=== PATIENT | male | born 1955 | race Caucasian/White ===

== ENCOUNTER 2016-12-15 10:02 | Outpatient (CLI) | payer OTHER ==
--- NOTE | 2016-12-15 12:32 | MRI Report ---
EXAM: MRI LUMBAR SPINE WITHOUT CONTRAST EXAM DATE: 12/15/2016 10:53 AM. CLINICAL HISTORY: 61-year-old with low back pain COMPARISON: Lumbar radiograph 02/26/2007. TECHNIQUE: Multiplanar, multisequence T1-weighted and fluid-sensitive sequences of the lumbar spine f rom T12 to S1 without contrast. Other: None. FINDINGS: Spinal Cord: The conus terminates at mid-L1. No signal abnormality in the visualized spinal cord. Alignment: Senior Data Integration Developer sequence suggest 24 degrees of levoconvex scoliotic curvature. No definite spondylol isthesis. Bone Marrow: Five vtw-itk-bokudaf lumbar vertebral bodies are assumed. There is moderate endplate deg enerative changes, Schmorl's node formation, mild to moderate loss of disk height, disk desiccation s een throughout the lumbar spine. No definite acute fracture. No marrow replacing lesion. No definite abnormal marrow edema Disk Levels/Facets: T12-L1: Unremarkable. L1-L2: Small posterior disk bulge as well as ligamentous thickening, arthritic facet disease, and pro minent dorsal epidural fat producing minimal thecal sac narrowing. There is no significant neural for delia narrowing. L2-L3: Small posterior disk bulge with central disk protrusion as well as ligamentum flavum thickenin g, arthritic facet disease, and prominent dorsal fat producing mild to moderate spinal canal stenosis . There is moderate right and mild left neural foraminal narrowing. L3-L4: Small posterior disk bulge as well as ligamentum flavum thickening, arthritic facet disease, a nd prominent dorsal epidural fat producing minimal thecal sac narrowing. There is mild right and mild -to-moderate left neuroforaminal narrowing. L4-L5: Small posterior disk bulge with slight effacement of the ventral thecal sac. Bilateral facet d isease. Mild right and dywh-nb-peewuoyu left neural foraminal narrowing. L5-S1: Small left paracentral disk protrusion with effacement of the lateral recess and potential mas s effect on traversing left S1 nerve root. Bilateral arthritic facet disease. Mild right and moderate -to-severe left neural foraminal narrowing. Musculature: Normal. No edema or fatty atrophy. Other: The visualized pelvic cavity is unremarkable. IMPRESSION: 1. Senior Data Integration Developer sequence suggest 24 degrees of levoconvex scoliotic curvature. No definite spondylolisthesis . 2. Moderate multilevel degenerative changes. L2-L3: Mild to moderate spinal canal stenosis. Moderate right and mild left neural foraminal narrowin g. L3-L4: No significant spinal canal stenosis. Mild right and xvff-it-wcftqcix left neuroforaminal narr owing. L4-L5: No significant spinal canal stenosis. Mild right and cblz-ya-dqtorttb left neural foraminal na rrowing. L5-S1: Mild to moderate effacement of the lateral recess and potential mass effect on traversing left S1 nerve root. Mild right and axvnmoym-cg-brxhky left neural foraminal narrowing. Comment: The following findings are so common in adults without low back pain that while we report th eir presence, they must be interpreted with caution and in the context of the clinical situation. (Re sherrie Leong et al, Spine 2001) Prevalence of findings in patients without low back pain: Disk degeneration (any evidence): 92% Disk desiccation/T2 signal loss: 83% Disk height loss: 56% Disk bulge: 64% Disk protrusion: 32% Annular tear/high intensity zone: 38% [facility] Referring Provider Line: [phone] SITE ID: [id number]
== END 2016-12-15 10:03 | disposition home or self-care (01) ==
LOC: DI 10:02
PROVIDERS: ATTEND Family Medicine
DX: M51.36 Other intervertebral disc degeneration, lumbar region (principal); M47.896 Other spondylosis, lumbar region; M51.26 Other intervertebral disc displacement, lumbar region; M51.27 Other intervertebral disc displacement, lumbosacral region; M47.897 Other spondylosis, lumbosacral region
CPT/HCPCS: 72148

== ENCOUNTER 2017-03-02 14:43 | Outpatient (CLI) | payer OTHER ==
[2017-03-02 12:52] LABS: BASOPHILS # (AUTO) 0.1 10^3/uL (0.0-0.1); BASOPHILS % (AUTO) 0.7 %; EOSINOPHILS # (AUTO) 0.1 10^3/uL (0.0-0.7); EOSINOPHILS % (AUTO) 1.8 %; HCT - HEMATOCRIT 45.2 % (42.0-52.0); HGB - HEMOGLOBIN 15.4 g/dL (14.0-18.0); LYMPHOCYTES # (AUTO) 1.7 10^3/uL (1.5-3.5); LYMPHOCYTES % (AUTO) 24.5 %; MEAN CORPUSCULAR HEMOGLOBIN 30.3 pg (27.0-31.0); MEAN CORPUSCULAR HGB CONC 34.1 g/dL (32.0-36.0); MEAN CORPUSCULAR VOLUME 88.8 fL (80.0-94.0); MEAN PLATELET VOLUME 9.7 fL (7.4-11.4); MONOCYTES # (AUTO) 0.6 10^3/uL (0.0-1.0); MONOCYTES % (AUTO) 8.5 %; NEUTROPHILS # (AUTO) 4.6 10^3/uL (1.5-6.6); NEUTROPHILS % (AUTO) 64.5 %; NUCLEATED RED BLOOD CELLS AUTO 0.1 /100WBC; RED BLOOD COUNT 5.09 10^6/uL (4.70-6.10); RED CELL DISTRIBUTION WIDTH 13.4 % (12.0-15.0); UNCORRECTED WHITE BLOOD COUNT 7.1 x10^3/uL; WHITE BLOOD COUNT 7.1 x10^3/uL (4.8-10.8)
[2017-03-02 13:31] LABS: ALBUMIN/GLOBULIN RATIO 1.5 (1.0-2.2); BILIRUBIN,TOTAL 1.9 mg/dL (0.2-1.0); BUN - BLOOD UREA NITROGEN 18 mg/dL (6-20); CALCIUM 9.5 mg/dL (8.5-10.3); CARBON DIOXIDE - CO2 26 mmol/L (21-32); CHLORIDE 104 mmol/L (101-111); CHOL/HDL RATIO 5.6 (<5.0); CHOLESTEROL 185 mg/dL; CREATININE 0.8 mg/dL (0.6-1.2); GFR - MDRD 98 (>89); GLUCOSE 90 mg/dL (70-100); HDL CHOLESTEROL 33 mg/dL; LDL/HDL RATIO 3.6 (<3.6); POTASSIUM 3.8 mmol/L (3.5-5.0); SODIUM 138 mmol/L (135-145); TOTAL PROTEIN 7.2 g/dL (6.7-8.2); TRIGLYCERIDES 166 mg/dL; VLDL CHOLESTEROL 33 mg/dL
== END 2017-03-02 14:44 | disposition home or self-care (01) ==
LOC: LAB.WCP 14:43
PROVIDERS: ATTEND Family Medicine
DX: G47.33 Obstructive sleep apnea (adult) (pediatric) (principal); D12.6 Benign neoplasm of colon, unspecified; E78.5 Hyperlipidemia, unspecified; I10 Essential (primary) hypertension; N52.9 Male erectile dysfunction, unspecified; Z12.5 Encounter for screening for malignant neoplasm of prostate
CPT/HCPCS: 36415; 80053; 80061; 84153; 85025

== ENCOUNTER → 2018-02-08 | Outpatient (CLI) | payer OTHER ==
[2018-02-08 15:00] LABS: ALBUMIN 4.2 g/dL (3.2-5.5); ALBUMIN/GLOBULIN RATIO 1.4 (1.0-2.2); ALKALINE PHOSPHATASE 68 IU/L (42-121); ALT ALANINE AMINOTRANSFERASE 33 IU/L (10-60); AST ASPARTATE AMINOTRANSFERASE 26 IU/L (10-42); BILIRUBIN,TOTAL 1.4 mg/dL (0.2-1.0); BUN - BLOOD UREA NITROGEN 19 mg/dL (6-20); CALCIUM 9.6 mg/dL (8.5-10.3); CARBON DIOXIDE - CO2 31 mmol/L (21-32); CHLORIDE 104 mmol/L (101-111); CHOL/HDL RATIO 4.6 (<5.0); CHOLESTEROL 174 mg/dL; CREATININE 0.9 mg/dL (0.6-1.2); GFR - MDRD 86 (>89); GLUCOSE 98 mg/dL (70-100); HDL CHOLESTEROL 38 mg/dL; LDL CHOLESTEROL,CALCULATED 117 mg/dL; LDL/HDL RATIO 3.1 (<3.6); SODIUM 144 mmol/L (135-145); TOTAL PROTEIN 7.2 g/dL (6.7-8.2); VLDL CHOLESTEROL 19 mg/dL
== END ==
LOC: LAB.WCP 08:03
PROVIDERS: ATTEND Family Medicine
DX: I10 Essential (primary) hypertension (principal); E78.5 Hyperlipidemia, unspecified; Z12.5 Encounter for screening for malignant neoplasm of prostate
CPT/HCPCS: 36415; 80053; 80061; 83721; 84153

== ENCOUNTER 2018-09-25 21:07 | Emergency (ER) | payer OTHER ==
[2018-09-25] MEDS ORDERED: HYDROcod/ACETAM 5/325 MG TABLET PO STA (22:32)
--- NOTE | 2018-09-25 22:35 | ED Physician Documentation ---
History of Present Illness - Stated complaint Stated Complaint: LT SIDE RIB PX - Chief complaint Chief Complaint: Back Pain - History obtained from History obtained from: Patient, Family - History of Present Illness Timing: How many weeks ago (3) Pain level max: 8 Pain level now: 5 - Additonal information Additional information: 62-year-old male fell down the stairs in his home 3 weeks ago. Tonight he sneezed and had an increased pain in the posterior left ribs. Better with rest, worse with movement and palpation. No difficulty breathing. Review of Systems Constitutional: denies: Fever, Chills Nose: denies: Rhinorrhea / runny nose, Congestion Respiratory: denies: Cough GI: denies: Nausea, Vomiting, Diarrhea Skin: denies: Rash Musculoskeletal: denies: Neck pain, Back pain Neurologic: denies: Focal weakness, Numbness, Head injury, LOC PD PAST MEDICAL HISTORY - Past Medical History Past Medical History: No - Past Surgical History Past Surgical History: No - Present Medications Home Medications: Ambulatory Orders Medication Instructions Recorded Confirmed Hydrocodone/Acetaminophen 1 - 2 each PO Q6H PRN #14 tablet 09/25/18 [Hydrocodon-Acetaminophen 5-325] - Allergies Allergies/Adverse Reactions: Allergies Allergy/AdvReac Type Severity Reaction Status Date / Time amoxicillin Allergy Hives Verified 09/25/18 21:16 - Living Situation Living Situation: reports: With family Living Arrangement: reports: At home - Social History Does the pt smoke?: No Does the pt have substance abuse?: No PD ED PE NORMAL - Vitals Vital signs reviewed: Yes - General General: Alert and oriented X 3, No acute distress - HEENT HEENT: Moist mucous membranes - Cardiac Cardiac: RRR - Respiratory Respiratory: No respiratory distress, Clear bilaterally - Abdomen Abdomen: Soft, Non tender, Non distended - Back Back: No spinal TTP (No midline tenderness to palpation) - Derm Derm: Warm and dry - Neuro Neuro: Alert and oriented X 3 - Psych Psych: Normal mood, Normal affect - Free text exam Free text exam: Tender to palpation on the left posterior ribs, approximately 7 through 9. No crepitus. No ecchymosis. Results - Vitals Vitals: Vital Signs - 24 hr 09/25/18 09/25/18 21:14 22:52 Temperature 36.8 C 36.5 C Heart Rate 70 65 Respiratory 20 16 Rate Blood Pressure 178/96 H 146/89 H O2 Saturation 96 95 Oxygen O2 Source Room air PD MEDICAL DECISION MAKING - ED course Complexity details: considered differential, d/w patient, d/w family ED course: 62-year-old male presents to the emergency department with left posterior rib injury 3 weeks ago, likely small fractures. No evidence of pneumothorax or pleural effusion. We will continue supportive care and follow-up with his doctor. Will hold x-rays at this time. Patient and comfortable with this plan. Patient counseled regarding signs and symptoms for which I believe and urgent re-evaluation would be necessary. Patient with good understanding of and agreement to plan and is comfortable going home at this time This document was made in part using voice recognition software. While efforts are made to proofread this document, sound alike and grammatical errors may occur. Departure - Departure Disposition: 01 Home, Self Care Clinical Impression: Contusion of rib on left side Qualifiers: Encounter type: initial encounter Qualified Code(s): S20.212A - Contusion of left front wall of thorax, initial encounter Condition: Good Instructions: ED Contusion Vs Minor Fx Rib Follow-Up: Skinny Oglesby MD [Primary Care Provider] - Within 1 week Prescriptions: Hydrocodone/Acetaminophen [Hydrocodon-Acetaminophen 5-325] 1 - 2 each PO Q6H PRN #14 tablet PRN Reason: pain Comments: Return if you worsen. Follow-up with your doctor for further care. You likely have a small rib fractures that will take approximately 6 weeks to heal. Do not drink alcohol or drive while on narcotic pain medicine. Note that many narcotic pain relievers also contain tylenol/acetaminophen. Please ensure that your total dose of acetaminophen from all sources does not exceed 3 grams (3000mg) per day. You may constipated on this medication, take a stool softener such as "Colace" twice a day while you are on it. Also recommend a iydf-lxs-ktgejey laxative such as senna or MiraLAX any day that you do not have a bowel movement. If you received narcotic pain medication in the emergency department, do not drive or operate machinery for the next 24 hours. Discharge Date/Time: 09/25/18 22:55
[2018-09-25 22:55] VITALS: BP 146/89
== END 2018-09-25 22:55 | disposition home or self-care (01) ==
LOC: ED 21:07
DX: S20.212A Contusion of left front wall of thorax, initial encounter (principal); W10.9XXA Fall (on) (from) unspecified stairs and steps, initial encounter; Y92.009 Unspecified place in unspecified non-institutional (private) residence as the place of occurrence of the external cause
CPT/HCPCS: 99283; A9270

== ENCOUNTER 2019-01-02 02:38 | Emergency (ER) | payer OTHER ==
[2019-01-02] MEDS ORDERED: HYDROmorphone 1 MG/ML CARPUJECT IVP STA (02:56)
[2019-01-02 03:21] LABS: BASOPHILS % (AUTO) 0.5 %; EOSINOPHILS # (AUTO) 0.2 10^3/uL (0.0-0.7); HGB - HEMOGLOBIN 15.2 g/dL (14.0-18.0); LYMPHOCYTES # (AUTO) 1.4 10^3/uL (1.5-3.5); LYMPHOCYTES % (AUTO) 18.9 %; MEAN CORPUSCULAR HEMOGLOBIN 30.6 pg (27.0-31.0); MEAN CORPUSCULAR VOLUME 89.9 fL (80.0-94.0); MEAN PLATELET VOLUME 10.9 fL (7.4-11.4); MONOCYTES # (AUTO) 0.8 10^3/uL (0.0-1.0); MONOCYTES % (AUTO) 10.5 %; NEUTROPHILS % (AUTO) 67.7 %; PLT - PLATELET COUNT 144 10^3/uL (130-450); RED BLOOD COUNT 4.97 10^6/uL (4.70-6.10); RED CELL DISTRIBUTION WIDTH 13.2 % (12.0-15.0); WHITE BLOOD COUNT 7.4 x10^3/uL (4.8-10.8)
[2019-01-02 03:26] LABS: CALCIUM 9.7 mg/dL (8.5-10.3); CREATININE 1.2 mg/dL (0.6-1.2)
--- NOTE | 2019-01-02 03:34 | CT Report ---
Reason: right flank pain, vomiting, possible kidney stone Procedure Date: 01/02/2019 Accession Number: [id number] / [id number] Procedure: CT - Abdomen/Pelvis WO CPT Code: FULL RESULT: EXAM: CT ABDOMEN AND PELVIS (CT KUB) EXAM DATE: 01/02/2019 03:15 AM. CLINICAL HISTORY: Right flank pain, vomiting, possible kidney stone. COMPARISONS: None. TECHNIQUE: Routine axial helical CT imaging was performed through the abdomen and pelvis without IV contrast. Reconstructions: Coronal and sagittal. In accordance with CT protocol optimization, one or more of the following dose reduction techniques were utilized for this exam: automated exposure control, adjustment of mA and/or KV based on patient size, or use of iterative reconstructive technique. FINDINGS: Lung Bases: Unremarkable. Right Kidney/Ureter: Mild right hydronephrosis secondary to right proximal ureteral 5 x 6 x 7 mm calculus additional small nonobstructive right renal calculi. Mild right perinephric stranding. Left Kidney/Ureter: Nonobstructive left renal calculus measuring 5 mm. Few hypodense left renal lesions measuring up to 3.6 cm, likely cysts. Mild left perinephric stranding. Other Solid Organs: Noncontrast images of the solid organs are grossly unremarkable. Gallbladder/Bile Ducts: Cholecystectomy. No significant biliary dilation. Peritoneal Cavity: No free fluid, free air or kuldip adenopathy. Bowel is grossly unremarkable. Appendix is normal. Pelvic Organs: Bladder is underdistended. No bladder stones or significant wall thickening. Noncontrast images of the visualized pelvic organs are unremarkable. Vasculature: Atherosclerotic vascular disease. No abdominal aortic aneurysm. Other: Osseous degenerative changes. Small fat-containing inguinal hernias. IMPRESSION: 1. Mild right hydronephrosis secondary to right proximal ureteral 5 x 6 x 7 mm calculus. Mild nonspecific perinephric stranding is present which is slightly greater on the right than left and may be reactive to obstructive uropathy. However, recommend clinical correlation and correlation with urinalysis to exclude superimposed infection. 2. Additional nonobstructive bilateral renal calculi and incidental hypodense left renal lesions which likely represent cysts. 3. Cholecystectomy. [facility]
[2019-01-02 04:05] LABS: BILIRUBIN,URINE NEGATIVE (NEGATIVE); GLUCOSE, URINE (UA) NEGATIVE (NEGATIVE); KETONES,URINE (UA) NEGATIVE (NEGATIVE); LEUKOCYTE ESTERASE, URINE NEGATIVE (NEGATIVE); NITRITE,URINE NEGATIVE (NEGATIVE); OCCULT BLOOD,URINE LARGE (NEGATIVE); PROTEIN,URINE TRACE mg/dL (NEGATIVE); UROBILINOGEN,URINE 0.2 (NORMAL) E.U./dL (NORMAL)
[2019-01-02 04:06] LABS: CLARITY,URINE CLEAR (CLEAR)
[2019-01-02 04:16] LABS: BACTERIA,URINE Rare /HPF (None Seen); RBC,URINE TNTC /HPF (0-5); SQUAMOUS EPITHELIAL CELL,UR RARE Squamous (<= Few)
--- NOTE | 2019-01-02 04:28 | ED Physician Documentation ---
PD HPI BACK PAIN - Stated complaint Stated Complaint: BK PX - Chief complaint Chief Complaint: Back Pain - History obtained from History obtained from: Patient, Family - History of Present Illness Timing - onset: How many days ago (2) Timing - duration: Days (2) Timing - details: Abrupt onset, Waxing and waning (right lower and right mid back pain) Pain level max: 9 Pain level now: 7 Severity Comments: moderate to severe, sharp and sudden Location: Mid, Lower, Right Quality: Sharp Associated symptoms: No: Fever, Weakness, Numbness, Incontinent of urine, Unable to urinate, Hematuria, Incontinent of stool Improves with: Nothing Worsened by: Other (nothing) Contributing factors: Other (none) Similar symptoms before: Has not had sx before Recently seen: Not recently seen - Treatment prior to arrival Treatment prior to arrival: ibuprofen at 1am Review of Systems Ten Systems: 10 systems reviewed and negative Constitutional: denies: Fever, Chills Cardiac: reports: Reviewed and negative Respiratory: reports: Reviewed and negative GI: reports: Nausea. denies: Abdominal Pain, Vomiting, Diarrhea : denies: Dysuria, Frequency, Hesitancy, Incontinent, Hematuria Musculoskeletal: reports: Back pain Neurologic: reports: Reviewed and negative Immunocompromised: reports: Reviewed and negative PD PAST MEDICAL HISTORY - Past Medical History Past Medical History: Yes Cardiovascular: Hypertension Respiratory: None Neuro: None Endocrine/Autoimmune: None GI: Cholelithiasis : None HEENT: None Psych: None Musculoskeletal: None Derm: None - Past Surgical History Past Surgical History: Yes General: Cholecystectomy, Colonoscopy, EGD - Present Medications Home Medications: Ambulatory Orders Medication Instructions Recorded Confirmed Hydrocodone/Acetaminophen 1 - 2 each PO Q6H PRN #14 tablet 09/25/18 [Hydrocodon-Acetaminophen 5-325] Hydrocodone/Acetaminophen 1 - 2 each PO Q6H PRN #14 tablet 01/02/19 [Hydrocodon-Acetaminophen 5-325] Ondansetron Odt [Zofran] 4 mg TL Q6H PRN #10 tablet 01/02/19 Tamsulosin HCl [Flomax] 0.4 mg PO DAILY PM #20 cap.er.24h 01/02/19 - Allergies Allergies/Adverse Reactions: Allergies Allergy/AdvReac Type Severity Reaction Status Date / Time amoxicillin Allergy Hives Verified 01/02/19 02:45 - Social History Does the pt smoke?: No Smoking Status: Never smoker Does the pt drink ETOH?: No Does the pt have substance abuse?: No - Immunizations Immunizations are current?: Yes - POLST Patient has POLST: No PD ED PE NORMAL - Vitals Vital signs reviewed: Yes - General General: Alert and oriented X 3, No acute distress - HEENT HEENT: Atraumatic, Moist mucous membranes - Neck Neck: Supple, no meningeal sign - Cardiac Cardiac: RRR - Respiratory Respiratory: No respiratory distress - Abdomen Abdomen: Soft, Non tender, Non distended - Male Male : Deferred - Rectal Rectal: Deferred - Back Back: No CVA TTP, No spinal TTP - Derm Derm: Normal color, Warm and dry, No rash - Extremities Extremities: No deformity - Neuro Neuro: Alert and oriented X 3 Eye Opening: Spontaneous Motor: Obeys Commands Verbal: Oriented GCS Score: 15 - Psych Psych: Normal mood, Normal affect Results - Vitals Vitals: Vital Signs - 24 hr 01/02/19 01/02/19 01/02/19 02:43 03:05 03:15 Temperature 36.5 C Heart Rate 72 Respiratory 17 17 17 Rate Blood Pressure 178/101 H O2 Saturation 97 01/02/19 01/02/19 01/02/19 03:56 04:34 04:35 Temperature 36.4 C L Heart Rate 62 Respiratory 17 20 16 Rate Blood Pressure 142/94 H O2 Saturation 96 Oxygen O2 Source Room air - Labs Labs: Laboratory Tests 01/02/19 01/02/19 01/02/19 03:00 03:00 04:00 WBC 7.4 RBC 4.97 Hgb 15.2 Hct 44.7 MCV 89.9 MCH 30.6 MCHC 34.0 RDW 13.2 Plt Count 144 MPV 10.9 Neut # (Auto) 5.0 Lymph # (Auto) 1.4 L [place] # (Auto) 0.8 Eos # (Auto) 0.2 Baso # (Auto) 0.0 Absolute Nucleated RBC 0.00 Nucleated RBC % 0.0 Sodium 141 Potassium 3.7 Chloride 105 Carbon Dioxide 24 Anion Gap 12.0 BUN 26 H Creatinine 1.2 Estimated GFR (MDRD) 61 L Glucose 136 H Calcium 9.7 Urine Color YELLOW Urine Clarity CLEAR Urine pH 5.0 Ur Specific [place] >=1.030 H Urine Protein TRACE Urine Glucose (UA) NEGATIVE Urine Ketones NEGATIVE Urine Occult Blood LARGE H Urine Nitrite NEGATIVE Urine Bilirubin NEGATIVE Urine Urobilinogen 0.2 (NORMAL) Ur Leukocyte Esterase NEGATIVE Urine RBC TNTC H Urine WBC 0-3 Ur Squamous Epith Cells RARE Squamous Urine Bacteria Rare Ur Microscopic Review INDICATED Urine Culture Comments NOT INDICATED Hematuria likely due to his kidney stone, no evidence of UTI, normal renal function - Rads (name of study) CT abd/pelvis Radiology: Final report received, See rad report (7mm R kidney stone and 5mm L kidney stone ) PD MEDICAL DECISION MAKING - ED course Complexity details: reviewed results, re-evaluated patient, considered differential, d/w patient, d/w family ED course: ddx- back muscle strain, kidney stone, AAA, pyelonephritis, vertebral fracture, sacroilitis. 63 y/o M with R low/mid back pain, sharp sudden waxing and waning, retching and nauseous but no vomiting. Hx c/w possible kidney stone. Labs stable but UA with large hematuria. CT confirms kidney stone which is 7mm and proximal as well as a 5mm L sided stone which is asymptomatic. Initiated pt on flomax and given prn analgesics and antiemetics as well as outpt Urology f/u. pt is tolerating po and pain is controlled, I feel he is stable for a trial of outpt supportive care and f/u. Pt and given return precautions in case of worsening pain fever or new concerning symptoms. Departure - Departure Disposition: 01 Home, Self Care Clinical Impression: Kidney stones Condition: Stable Record reviewed to determine appropriate education?: Yes Instructions: Kidney Stones Follow-Up: Farzana De Guzman MD [Provider Admit Priv/Credential] - Prescriptions: Hydrocodone/Acetaminophen [Hydrocodon-Acetaminophen 5-325] 1 - 2 each PO Q6H PRN #14 tablet PRN Reason: pain Ondansetron Odt [Zofran] 4 mg TL Q6H PRN #10 tablet PRN Reason: Nausea / Vomiting Tamsulosin HCl [Flomax] 0.4 mg PO DAILY PM #20 cap.er.24h Comments: Return to the ED if fever or if pain is severe and not improving with regular medications prescribed for pain. Discharge Date/Time: 01/02/19 04:37
[2019-01-02 04:35] VITALS: BP 142/94
== END 2019-01-02 04:37 | disposition home or self-care (01) ==
LOC: ED 02:38
DX: N13.2 Hydronephrosis with renal and ureteral calculous obstruction (principal); I10 Essential (primary) hypertension
CPT/HCPCS: 36415; 74176; 80048; 81001; 81003; 85025; 87086; 99284

== ENCOUNTER 2019-05-02 09:39 | Outpatient (CLI) | payer OTHER ==
--- NOTE | 2019-05-02 15:49 | XRAY Report ---
Reason: KNEE PAIN LEFT Procedure Date: 05/02/2019 Accession Number: [id number] / [id number] Procedure: XR - Knee 3 View LT CPT Code: Final Report FULL RESULT: EXAM: LEFT KNEE RADIOGRAPHY. EXAM DATE: 05/02/2019 09:59 AM. CLINICAL HISTORY: Knee pain left. COMPARISON: None. TECHNIQUE: 3 views. FINDINGS: Bones: No acute fracture or bony lesion. Minimal degenerative spurring. Joints: Mild narrowing of the medial and patellofemoral compartment. Trace left knee effusion. Medial and lateral compartment chondrocalcinosis. Chondromalacia patella. Soft Tissues: Normal. No soft tissue swelling. IMPRESSION: 1. Mild degenerative changes of the left knee. [facility]
== END 2019-05-02 09:40 | disposition home or self-care (01) ==
LOC: DI 09:39
PROVIDERS: ATTEND Family Medicine
DX: M17.12 Unilateral primary osteoarthritis, left knee (principal)

== ENCOUNTER 2019-06-27 06:57 | Day surgery (SDC) | payer OTHER ==
[2019-06-27] MEDS ORDERED: LACTATED RINGERS 1,000 ML IV ONE (07:09)
[2019-06-27] MEDS ORDERED: fentaNYL 250 MCG/5 ML VIAL IVP ONE (09:44)
[2019-06-27] MEDS ORDERED: MIDAZOLAM 2 MG/2 ML VIAL IVP ONE (09:44)
[2019-06-27 10:18] VITALS: BP 106/71
== END 2019-06-27 06:58 | disposition home or self-care (01) ==
LOC: SDS 06:57
PROVIDERS: ATTEND Surgery
PROC: 0DBM8ZZ Excision of Descending Colon, Via Natural or Artificial Opening Endoscopic (ICD-10-PCS; principal; 2019-06-27 08:15)
DX: Z12.11 Encounter for screening for malignant neoplasm of colon (principal); D12.4 Benign neoplasm of descending colon; K64.8 Other hemorrhoids; K64.4 Residual hemorrhoidal skin tags; I10 Essential (primary) hypertension; E66.9 Obesity, unspecified; G47.33 Obstructive sleep apnea (adult) (pediatric); Z80.9 Family history of malignant neoplasm, unspecified; Z68.41 Body mass index [BMI] 40.0-44.9, adult; Z79.899 Other long term (current) drug therapy
CPT/HCPCS: 45385; J3010; J7120

== ENCOUNTER 2020-04-17 07:50 | Outpatient (CLI) | payer OTHER ==
[2020-04-17 08:21] LABS: BASOPHILS # (AUTO) 0.1 10^3/uL (0.0-0.1); BASOPHILS % (AUTO) 0.7 %; EOSINOPHILS # (AUTO) 0.2 10^3/uL (0.0-0.7); EOSINOPHILS % (AUTO) 3.5 %; HGB - HEMOGLOBIN 15.2 g/dL (14.0-18.0); LYMPHOCYTES # (AUTO) 1.8 10^3/uL (1.5-3.5); LYMPHOCYTES % (AUTO) 26.1 %; MEAN CORPUSCULAR HEMOGLOBIN 29.9 pg (27.0-31.0); MEAN CORPUSCULAR HGB CONC 32.5 g/dL (32.0-36.0); MEAN CORPUSCULAR VOLUME 91.9 fL (80.0-94.0); MEAN PLATELET VOLUME 10.3 fL (7.4-11.4); MONOCYTES # (AUTO) 0.6 10^3/uL (0.0-1.0); MONOCYTES % (AUTO) 9.1 %; NEUTROPHILS # (AUTO) 4.2 10^3/uL (1.5-6.6); NEUTROPHILS % (AUTO) 60.2 %; PLT - PLATELET COUNT 149 10^3/uL (130-450); RED BLOOD COUNT 5.09 10^6/uL (4.70-6.10); RED CELL DISTRIBUTION WIDTH 13.2 % (12.0-15.0); WHITE BLOOD COUNT 6.9 x10^3/uL (4.8-10.8)
[2020-04-17 08:38] LABS: ALBUMIN 4.3 g/dL (3.2-5.5); ALBUMIN/GLOBULIN RATIO 1.4 (1.0-2.2); ALKALINE PHOSPHATASE 62 IU/L (42-121); ALT ALANINE AMINOTRANSFERASE 33 IU/L (10-60); AST ASPARTATE AMINOTRANSFERASE 24 IU/L (10-42); BILIRUBIN,TOTAL 1.9 mg/dL (0.2-1.0); BUN - BLOOD UREA NITROGEN 16 mg/dL (6-20); CALCIUM 9.4 mg/dL (8.5-10.3); CARBON DIOXIDE - CO2 29 mmol/L (21-32); CHLORIDE 102 mmol/L (101-111); CHOL/HDL RATIO 5.4 (<5.0); CHOLESTEROL 190 mg/dL; CREATININE 0.8 mg/dL (0.6-1.2); GLUCOSE 93 mg/dL (70-100); HDL CHOLESTEROL 35 mg/dL; LDL CHOLESTEROL,CALCULATED 116 mg/dL; LDL/HDL RATIO 3.3 (<3.6); SODIUM 140 mmol/L (135-145); TOTAL PROTEIN 7.3 g/dL (6.7-8.2); VLDL CHOLESTEROL 39 mg/dL
== END 2020-04-17 07:51 | disposition home or self-care (01) ==
LOC: LAB 07:50
PROVIDERS: ATTEND Family Medicine
DX: I10 Essential (primary) hypertension (principal); E78.5 Hyperlipidemia, unspecified; D12.6 Benign neoplasm of colon, unspecified; G47.33 Obstructive sleep apnea (adult) (pediatric); N52.9 Male erectile dysfunction, unspecified; M54.5 Low back pain
CPT/HCPCS: 36415; 80053; 80061; 83721; 84153; 84443; 85025

== ENCOUNTER 2020-05-12 16:28 | Outpatient (CLI) | payer OTHER ==
--- NOTE | 2020-05-12 16:59 | XRAY Report ---
PROCEDURE: Foot 3 View LT INDICATIONS: L FOOT PX TECHNIQUE: 3 views of the foot were acquired. COMPARISON: None FINDINGS: Bones: No fractures or dislocations. No suspicious bony lesions. Moderate joint space narrowing an d periarticular osteophyte formation at the first metatarsophalangeal joint as well as the interphala ngeal joint of the first digit, the talonavicular, and difficult canal forms joints, indicating osteo arthritis. Soft tissues: No tibiotalar joint effusion. Achilles tendon appears normal. IMPRESSION: Multifocal osteoarthritis. No acute fracture. No osseous lesion. If symptoms and/or clinical suspicio n for pathology continue, further assessment with repeat plain films, or advanced imaging (e.g., CT, MRI, or bone scan) is recommended for further assessment. Reviewed by: Asif Melvin MD on 05/12/2020 4:57 PM PST Approved by: Asif Melvin MD on 05/12/2020 4:57 PM PST Station ID: [id number]
== END 2020-05-12 23:59 | disposition home or self-care (01) ==
LOC: DI.N 16:28
PROVIDERS: ATTEND Nurse Practitioner
DX: M19.072 Primary osteoarthritis, left ankle and foot (principal)

== ENCOUNTER 2020-06-15 08:21 | Outpatient (CLI) | payer OTHER ==
--- NOTE | 2020-06-15 16:21 | XRAY Report ---
PROCEDURE: Foot 3 View LT INDICATIONS: L FOOT PX TECHNIQUE: 3 views of the foot were acquired. COMPARISON: X-ray foot 05/12/2020 FINDINGS: Bones: No fractures or dislocations. No suspicious bony lesions. Scattered IP degenerative narrowi ng is present particularly at the first MTP joint. Small areas of periarticular lucency are noted at the first MTP joint. Soft tissues: No tibiotalar joint effusion. Achilles tendon appears normal. IMPRESSION: 1. Degenerative changes as above. Small areas of lucency noted at the first MTP joint. While these co uld represent erosive arthritic change, gout cannot be completely excluded. Clinical correlation is r ecommended. 2. If concern persists for occult fracture, CT or MRI is recommended without contrast. Reviewed by: Joycelyn Astorga MD on 06/15/2020 4:20 PM PST Approved by: Joycelyn Astorga MD on 06/15/2020 4:20 PM [facility] Station ID: [id number]
== END 2020-06-15 23:59 | disposition home or self-care (01) ==
LOC: DI.N 08:21
PROVIDERS: ATTEND Physician Assistant Medical
DX: M19.072 Primary osteoarthritis, left ankle and foot (principal)

== ENCOUNTER 2021-03-10 15:04 | Outpatient (CLI) | payer MEDICARE, OTHER | END 2021-03-10 15:05 | disposition critical access hospital (66) | LOC: EMS 15:04 | DX: M54.50 Low back pain, unspecified (principal) | CPT/HCPCS: A0425; A0427 ==

== ENCOUNTER 2021-03-10 15:16 | Emergency (ER) | payer MEDICARE, OTHER ==
[2021-03-10] MEDS ORDERED: DEXAMETHASONE 10 MG/ML VIAL IVP STA (15:28)
[2021-03-10] MEDS ORDERED: methocarbamoL 500 MG TABLET PO STA (15:28)
[2021-03-10] MEDS ORDERED: KETOROLAC 30 MG/ML VIAL IVP STA (15:28)
--- NOTE | 2021-03-10 15:29 | ED Physician Documentation ---
PD HPI BACK PAIN - Stated complaint Stated Complaint: LOW BACK PX - History obtained from History obtained from: Patient - History of Present Illness Timing - onset: Today Timing - duration: Days (1) Timing - details: Abrupt onset Pain level max: 10 Pain level now: 5 Location: Lower, Left Quality: Pain, Spasm, Similar to prior episodes Associated symptoms: No: Fever, Weakness, Numbness, Incontinent of urine, Unable to urinate, Hematuria, Incontinent of stool Improves with: Rest Worsened by: Movement Contributing factors: Lifting Recently seen: Not recently seen - Additional information Additional information: Patient is a 65-year-old male who is brought in by ER last for back pain. He does have a history of back issues in the past. He spent about 3 hours moving boxes of book this morning. He states that on his way home his back began to tighten up and he could not get out of the car. EMS gave the patient morphine with good relief. No numbness or tingling. Has chronic left-sided sciatica that is unchanged. No fevers. No chills. Worse with movement, better with rest. Review of Systems Constitutional: denies: Fever, Chills GI: denies: Vomiting, Diarrhea : denies: Unable to Void, Incontinent Skin: denies: Rash Musculoskeletal: denies: Neck pain Neurologic: denies: Focal weakness, Numbness, Headache PD PAST MEDICAL HISTORY - Past Medical History Cardiovascular: Hypertension Respiratory: Sleep apnea, CPAP use Neuro: None Endocrine/Autoimmune: None GI: Colon polyps, Cholelithiasis : None HEENT: None Psych: None Musculoskeletal: None Derm: None - Past Surgical History Past Surgical History: Yes General: Cholecystectomy, Colonoscopy, EGD, Other - Present Medications Home Medications: Ambulatory Orders Medication Instructions Recorded Confirmed Tamsulosin HCl [Flomax] 0.4 mg PO DAILY PM #20 cap.er.24h 01/02/19 Losartan Potassium 100 mg PO DAILY 06/27/19 06/27/19 Meloxicam 15 mg PO DAILY 06/27/19 06/27/19 Multivitamin [Multiple Vitamins] 1 tab PO DAILY 06/27/19 06/27/19 Sildenafil Citrate [Revatio] 20 mg PO DAILY 06/27/19 06/27/19 Trazodone HCl 100 mg PO DAILY 06/27/19 06/27/19 hydroCHLOROthiazide 25 mg PO DAILY 06/27/19 06/27/19 [Hydrochlorothiazide] Oxycodone HCl/Acetaminophen 1 - 2 each PO Q6H PRN #14 tablet 03/10/21 [Percocet 5-325 mg Tablet] methocarbamoL [Robaxin] 500 mg PO Q6H PRN #20 tablet 03/10/21 methylPREDNISolone [Medrol] 4 mg PO DAILY #1 packet 03/10/21 - Allergies Allergies/Adverse Reactions: Allergies Allergy/AdvReac Type Severity Reaction Status Date / Time amoxicillin Allergy Hives Verified 03/10/21 15:30 - Social History Does the pt smoke?: No Smoking Status: Never smoker Does the pt drink ETOH?: No Does the pt have substance abuse?: No - Immunizations Immunizations are current?: Yes - POLST Patient has POLST: No PD ED PE NORMAL - Vitals Vital signs reviewed: Yes - General General: Alert and oriented X 3, No acute distress, Well developed/nourished - HEENT HEENT: PERRL, Moist mucous membranes - Neck Neck: Supple, no meningeal sign, No bony TTP - Cardiac Cardiac: RRR, Strong equal pulses - Respiratory Respiratory: No respiratory distress, Clear bilaterally - Abdomen Abdomen: Soft, Non tender, Non distended - Back Back: No spinal TTP, Other (No midline tenderness to palpation. No step-off or deformity. Paraspinal spasm left low lumbar) - Derm Derm: Warm and dry - Extremities Extremities: No edema, No calf tenderness / cord - Neuro Neuro: Alert and oriented X 3, No motor deficit, No sensory deficit, Other (Normal bilateral lower extremity patellar and ankle jerk reflexes. Normal great toe extension bilaterally. no saddle anesthesia) - Psych Psych: Normal mood, Normal affect Results - Vitals Vitals: Vital Signs - 24 hr 03/10/21 15:25 Temperature 36.6 C Heart Rate 66 Respiratory 18 Rate Blood Pressure 184/93 H O2 Saturation 99 Oxygen O2 Source Room air PD MEDICAL DECISION MAKING - ED course Complexity details: re-evaluated patient (Patient is feeling better after medication.), considered differential (No cauda equina, no spinal epidural abscess, no fracture, no aortic dissection or evidence of aneursym rupture), d/w patient ED course: Patient with acute back spasm. Pain improved with Toradol, Robaxin and IV steroids here. We will prescribe pain medication muscle relaxants for home. No indication for emergent imaging. No evidence of cauda equina, epidural abscess. I am prescribing a short course of short-acting opioid pain medication for this patient. I have reviewed the patients SWIM COACH and no concerning findings were noted. I have discussed that the opioids are for short term therapy only, and will not be refilled from the ED. patient counseled regarding signs and symptoms for which I believe and urgent re-evaluation would be necessary. Patient with good understanding of and agreement to plan and is comfortable going home at this time This document was made in part using voice recognition software. While efforts are made to proofread this document, sound alike and grammatical errors may occur. Departure - Departure Disposition: Home, Self Care Clinical Impression: Back muscle spasm Sciatica Qualifiers: Laterality: left Qualified Code(s): M54.32 - Sciatica, left side Condition: Good Instructions: ED Spasm Back No Trauma, ED Sciatica Follow-Up: Rafita Hines MD [Primary Care Provider] - Within 1 week Prescriptions: methylPREDNISolone [Medrol] 4 mg PO DAILY #1 packet Oxycodone HCl/Acetaminophen [Percocet 5-325 mg Tablet] 1 - 2 each PO Q6H PRN #14 tablet PRN Reason: pain methocarbamoL [Robaxin] 500 mg PO Q6H PRN #20 tablet PRN Reason: muscle spasm Comments: Your prescriptions were sent to the [facility] pharmacy. You can pick this up today. Return if you worsen. I am prescribing a short course of narcotic pain medication for you. These are potentially dangerous and addictive medications that should be used carefully. These medications may constipate you. Take an [id number] stool softener (docusate) twice daily with plenty of water while taking these medications. If you go 24 hours without a bowel movement, take [id number] miralax, per package instructions. Do not drink or drive while taking these medications. If you received narcotic or sedating medications while in the emergency department, do not drive for 24 hours. Store this medication in a safe, secure place and out of reach of children. It is a violation of federal law to give or sell this medication to another person or to use in a manner other than prescribed. The ED will not refill narcotic prescriptions, including prescriptions lost or stolen. To dispose of unwanted medications: 1. [facility] at [address] in [place] has a medication drop box. They accept prescription medications (in pill form) Monday through Monday 9:00 a.m. to 5:00 p.m. 2. The [facility] [employer] accepts prescription medications (in pill form only) for disposal year round. Call for more information. 3. Contact the [facility] for the next [facility] sponsored prescription drug collection event. , [phone], or [phone];
[2021-03-10 15:30] VITALS: BP 184/93
== END 2021-03-10 17:23 | disposition home or self-care (01) ==
LOC: EDUNIT# → SUPCPDRO 15:16 → ED 15:16
DX: M54.32 Sciatica, left side (principal); M62.830 Muscle spasm of back; I10 Essential (primary) hypertension
CPT/HCPCS: 96374; 99283; 99284; A9270

== ENCOUNTER 2021-04-28 07:13 | Outpatient (CLI) | payer MEDICARE, OTHER ==
[2021-04-28 11:55] LABS: BASOPHILS % (AUTO) 0.7 %; EOSINOPHILS # (AUTO) 0.2 10^3/uL (0.0-0.7); EOSINOPHILS % (AUTO) 2.5 %; HGB - HEMOGLOBIN 15.6 g/dL (14.0-18.0); LYMPHOCYTES # (AUTO) 1.6 10^3/uL (1.5-3.5); LYMPHOCYTES % (AUTO) 27.4 %; MEAN CORPUSCULAR HEMOGLOBIN 30.1 pg (27.0-31.0); MEAN CORPUSCULAR HGB CONC 33.2 g/dL (32.0-36.0); MEAN CORPUSCULAR VOLUME 90.7 fL (80.0-94.0); MEAN PLATELET VOLUME 11.1 fL (7.4-11.4); MONOCYTES # (AUTO) 0.5 10^3/uL (0.0-1.0); MONOCYTES % (AUTO) 8.6 %; NEUTROPHILS # (AUTO) 3.6 10^3/uL (1.5-6.6); NEUTROPHILS % (AUTO) 60.6 %; PLT - PLATELET COUNT 148 10^3/uL (130-450); RED BLOOD COUNT 5.18 10^6/uL (4.70-6.10); RED CELL DISTRIBUTION WIDTH 13.4 % (12.0-15.0)
[2021-04-28 12:34] LABS: ALBUMIN 4.2 g/dL (3.2-5.5); ALBUMIN/GLOBULIN RATIO 1.5 (1.0-2.2); ALKALINE PHOSPHATASE 59 IU/L (42-121); ALT ALANINE AMINOTRANSFERASE 35 IU/L (10-60); AST ASPARTATE AMINOTRANSFERASE 26 IU/L (10-42); BUN - BLOOD UREA NITROGEN 19 mg/dL (6-20); CALCIUM 9.6 mg/dL (8.5-10.3); CARBON DIOXIDE - CO2 28 mmol/L (21-32); CHLORIDE 100 mmol/L (101-111); CHOL/HDL RATIO 5.3 (<5.0); CHOLESTEROL 191 mg/dL; CREATININE 0.7 mg/dL (0.6-1.2); GFR - MDRD 113 (>89); GLUCOSE 94 mg/dL (70-100); HDL CHOLESTEROL 36 mg/dL; LDL CHOLESTEROL,CALCULATED 124 mg/dL; LDL/HDL RATIO 3.4 (<3.6); POTASSIUM 3.8 mmol/L (3.5-5.0); SODIUM 139 mmol/L (135-145); TRIGLYCERIDES 154 mg/dL; VLDL CHOLESTEROL 31 mg/dL
[2021-04-28 12:44] LABS: THYROID STIMULATING HORMONE 2.6 uIU/mL (0.34-5.60)
== END 2021-04-28 23:59 | disposition home or self-care (01) ==
LOC: LAB.WCP 07:13
PROVIDERS: ATTEND Family Medicine
DX: I10 Essential (primary) hypertension (principal); N52.9 Male erectile dysfunction, unspecified; E78.5 Hyperlipidemia, unspecified
CPT/HCPCS: 36415; 80053; 80061; 83721; 84153; 84443; 85025

== ENCOUNTER 2021-10-28 07:44 | Outpatient (CLI) | payer MEDICARE, OTHER ==
[2021-10-28 11:30] LABS: BASOPHILS % (AUTO) 0.6 %; EOSINOPHILS # (AUTO) 0.2 10^3/uL (0.0-0.7); EOSINOPHILS % (AUTO) 2.4 %; HCT - HEMATOCRIT 46.5 % (42.0-52.0); HGB - HEMOGLOBIN 15.4 g/dL (14.0-18.0); LYMPHOCYTES # (AUTO) 1.5 10^3/uL (1.5-3.5); LYMPHOCYTES % (AUTO) 22.2 %; MEAN CORPUSCULAR HGB CONC 33.1 g/dL (32.0-36.0); MEAN CORPUSCULAR VOLUME 90.5 fL (80.0-94.0); MEAN PLATELET VOLUME 11.3 fL (7.4-11.4); MONOCYTES # (AUTO) 0.5 10^3/uL (0.0-1.0); MONOCYTES % (AUTO) 8.2 %; NEUTROPHILS # (AUTO) 4.4 10^3/uL (1.5-6.6); NEUTROPHILS % (AUTO) 66.3 %; PLT - PLATELET COUNT 171 10^3/uL (130-450); RED BLOOD COUNT 5.14 10^6/uL (4.70-6.10); RED CELL DISTRIBUTION WIDTH 13.5 % (12.0-15.0); WHITE BLOOD COUNT 6.6 x10^3/uL (4.8-10.8)
[2021-10-28 11:46] LABS: ALBUMIN 4.1 g/dL (3.2-5.5); ALBUMIN/GLOBULIN RATIO 1.3 (1.0-2.2); ALKALINE PHOSPHATASE 63 IU/L (42-121); ALT ALANINE AMINOTRANSFERASE 27 IU/L (10-60); AST ASPARTATE AMINOTRANSFERASE 26 IU/L (10-42); BILIRUBIN,TOTAL 1.5 mg/dL (0.2-1.0); BUN - BLOOD UREA NITROGEN 17 mg/dL (6-20); CALCIUM 9.4 mg/dL (8.5-10.3); CARBON DIOXIDE - CO2 29 mmol/L (21-32); CHLORIDE 105 mmol/L (101-111); CHOL/HDL RATIO 4.6 (<5.0); CHOLESTEROL 178 mg/dL; CREATININE 0.8 mg/dL (0.6-1.2); GFR - MDRD 97 (>89); GLUCOSE 89 mg/dL (70-100); HDL CHOLESTEROL 39 mg/dL; LDL CHOLESTEROL,CALCULATED 124 mg/dL; LDL/HDL RATIO 3.2 (<3.6); POTASSIUM 3.8 mmol/L (3.5-5.0); SODIUM 141 mmol/L (135-145); TOTAL PROTEIN 7.3 g/dL (6.7-8.2); TRIGLYCERIDES 77 mg/dL; VLDL CHOLESTEROL 15 mg/dL
[2021-10-28 11:54] LABS: THYROID STIMULATING HORMONE 3.36 uIU/mL (0.34-5.60)
== END 2021-10-28 07:45 | disposition home or self-care (01) ==
LOC: LAB.N 07:44
PROVIDERS: ATTEND Family Medicine
DX: I10 Essential (primary) hypertension (principal); M54.16 Radiculopathy, lumbar region; M51.86 Other intervertebral disc disorders, lumbar region; M19.049 Primary osteoarthritis, unspecified hand; Z68.41 Body mass index [BMI] 40.0-44.9, adult; K21.9 Gastro-esophageal reflux disease without esophagitis; E78.5 Hyperlipidemia, unspecified
CPT/HCPCS: 36415; 80053; 80061; 83721; 84153; 84443; 85025

== ENCOUNTER 2022-02-28 14:43 | Outpatient (CLI) | payer MEDICARE, OTHER | END 2022-02-28 14:44 | disposition home or self-care (01) | LOC: LAB 14:43 | PROVIDERS: ATTEND Family Medicine | DX: Z80.3 Family history of malignant neoplasm of breast (principal) | CPT/HCPCS: 81599 ==

== ENCOUNTER 2022-03-01 15:39 | Outpatient (CLI) | payer MEDICARE, OTHER | END 2022-03-01 15:40 | disposition home or self-care (01) | LOC: LAB 15:39 | PROVIDERS: ATTEND Family Medicine | DX: Z13.79 Encounter for other screening for genetic and chromosomal anomalies (principal); Z80.3 Family history of malignant neoplasm of breast; Z15.01 Genetic susceptibility to malignant neoplasm of breast | CPT/HCPCS: 81162; 81599 ==

== ENCOUNTER 2022-05-24 09:21 | Outpatient (CLI) | payer MEDICARE, OTHER ==
[2022-05-24 11:40] LABS: BASOPHILS % (AUTO) 0.6 %; EOSINOPHILS # (AUTO) 0.2 10^3/uL (0.0-0.7); EOSINOPHILS % (AUTO) 2.7 %; HCT - HEMATOCRIT 46.1 % (42.0-52.0); HGB - HEMOGLOBIN 14.9 g/dL (14.0-18.0); LYMPHOCYTES # (AUTO) 1.6 10^3/uL (1.5-3.5); LYMPHOCYTES % (AUTO) 24.5 %; MEAN CORPUSCULAR HEMOGLOBIN 29.4 pg (27.0-31.0); MEAN CORPUSCULAR HGB CONC 32.3 g/dL (32.0-36.0); MEAN CORPUSCULAR VOLUME 90.9 fL (80.0-94.0); MEAN PLATELET VOLUME 11.2 fL (7.4-11.4); MONOCYTES # (AUTO) 0.7 10^3/uL (0.0-1.0); MONOCYTES % (AUTO) 10.5 %; NEUTROPHILS # (AUTO) 4.1 10^3/uL (1.5-6.6); NEUTROPHILS % (AUTO) 61.4 %; PLT - PLATELET COUNT 175 10^3/uL (130-450); RED BLOOD COUNT 5.07 10^6/uL (4.70-6.10); RED CELL DISTRIBUTION WIDTH 13.3 % (12.0-15.0); WHITE BLOOD COUNT 6.7 x10^3/uL (4.8-10.8)
[2022-05-24 12:14] LABS: ALBUMIN 4.2 g/dL (3.2-5.5); BILIRUBIN,DIRECT 0.3 mg/dL (0.1-0.5); BILIRUBIN,TOTAL 1.6 mg/dL (0.2-1.0); TOTAL PROTEIN 7.4 g/dL (6.7-8.2)
== END 2022-05-24 09:22 | disposition home or self-care (01) ==
LOC: LAB.N 09:21
PROVIDERS: ATTEND Physician Assistant
DX: B35.1 Tinea unguium (principal)
CPT/HCPCS: 36415; 80076; 85025

== ENCOUNTER 2022-06-03 06:57 | Outpatient (CLI) | payer MEDICARE, OTHER ==
--- NOTE | 2022-06-03 13:34 | Ultrasound Report ---
PROCEDURE: Abdomen Limited INDICATIONS: BRCA2 GENE MUTATION POSITIVE TECHNIQUE: Real-time scanning was performed of the abdominal and retroperitoneal organs, with image documentatio n. COMPARISON: CT abdomen pelvis 01/02/2019. FINDINGS: Liver: Liver is normal in size measuring 14.2 cm with overall increased echogenicity. The left lobe is a focus of decreased echogenicity measuring 1.3 cm a similar focus in the right lobe measuring 1.1 cm. Gallbladder: Absent. Biliary ducts: Intrahepatic bile ducts are non-dilated. Extrahepatic bile duct caliber measures 6.9 mm. Normal is 6-7 mm or less in diameter, or 10 mm or less post-cholecystectomy. Pancreas: Visualized portions of the pancreas are sonographically normal. Kidneys: Right kidney measures 10.9 cm long. No hydronephrosis or nephrolithiasis. No solid masses . Aorta: Visualized aorta is normal in caliber at less than 3 cm. Iliacs: Proximal common iliac arteries are well seen IVC: Intrahepatic inferior vena cava is patent. Miscellaneous: No free abdominal fluid. IMPRESSION: Simple cysts within the liver as above. Gallbladder is absent. Hepatic steatosis. Reviewed by: Joycelyn Astorga MD on 06/03/2022 1:32 PM PST Approved by: Joycelyn Astorga MD on 06/03/2022 1:32 PM PST Station ID: [id number]
== END 2022-06-03 06:58 | disposition home or self-care (01) ==
LOC: DI 06:57
PROVIDERS: ATTEND Family Medicine
DX: Z15.01 Genetic susceptibility to malignant neoplasm of breast (principal); K76.89 Other specified diseases of liver; K76.0 Fatty (change of) liver, not elsewhere classified; Z90.49 Acquired absence of other specified parts of digestive tract

== ENCOUNTER 2022-06-28 14:39 | Outpatient (CLI) | payer MEDICARE, OTHER ==
[2022-06-28 18:00] LABS: BASOPHILS # (AUTO) 0.1 10^3/uL (0.0-0.1); BASOPHILS % (AUTO) 0.7 %; EOSINOPHILS # (AUTO) 0.2 10^3/uL (0.0-0.7); EOSINOPHILS % (AUTO) 2.2 %; LYMPHOCYTES # (AUTO) 1.8 10^3/uL (1.5-3.5); LYMPHOCYTES % (AUTO) 24.9 %; MEAN CORPUSCULAR HEMOGLOBIN 29.6 pg (27.0-31.0); MEAN CORPUSCULAR HGB CONC 32.6 g/dL (32.0-36.0); MEAN CORPUSCULAR VOLUME 90.9 fL (80.0-94.0); MEAN PLATELET VOLUME 11.8 fL (7.4-11.4); MONOCYTES # (AUTO) 0.6 10^3/uL (0.0-1.0); MONOCYTES % (AUTO) 8.4 %; NEUTROPHILS # (AUTO) 4.6 10^3/uL (1.5-6.6); NEUTROPHILS % (AUTO) 63.7 %; PLT - PLATELET COUNT 167 10^3/uL (130-450); RED BLOOD COUNT 5.06 10^6/uL (4.70-6.10); RED CELL DISTRIBUTION WIDTH 13.1 % (12.0-15.0); WHITE BLOOD COUNT 7.2 x10^3/uL (4.8-10.8)
[2022-06-28 18:38] LABS: ALBUMIN 4.2 g/dL (3.2-5.5); BILIRUBIN,DIRECT 0.1 mg/dL (0.1-0.5); BILIRUBIN,TOTAL 1.1 mg/dL (0.2-1.0); TOTAL PROTEIN 7.2 g/dL (6.7-8.2)
== END 2022-06-28 14:40 | disposition home or self-care (01) ==
LOC: LAB.N 14:39
PROVIDERS: ATTEND Physician Assistant
DX: B35.1 Tinea unguium (principal)
CPT/HCPCS: 36415; 80076; 85025

== ENCOUNTER 2022-07-28 00:12 | Emergency (ER) | payer MEDICARE, OTHER ==
[2022-07-28 00:47] LABS: BASOPHILS % (AUTO) 0.4 %; EOSINOPHILS # (AUTO) 0.2 10^3/uL (0.0-0.7); EOSINOPHILS % (AUTO) 2.4 %; HCT - HEMATOCRIT 45.4 % (42.0-52.0); HGB - HEMOGLOBIN 14.8 g/dL (14.0-18.0); LYMPHOCYTES # (AUTO) 2.2 10^3/uL (1.5-3.5); LYMPHOCYTES % (AUTO) 28.1 %; MEAN CORPUSCULAR HEMOGLOBIN 29.9 pg (27.0-31.0); MEAN CORPUSCULAR HGB CONC 32.6 g/dL (32.0-36.0); MEAN CORPUSCULAR VOLUME 91.7 fL (80.0-94.0); MEAN PLATELET VOLUME 10.6 fL (7.4-11.4); MONOCYTES # (AUTO) 0.8 10^3/uL (0.0-1.0); MONOCYTES % (AUTO) 10.3 %; NEUTROPHILS # (AUTO) 4.6 10^3/uL (1.5-6.6); NEUTROPHILS % (AUTO) 58.4 %; PLT - PLATELET COUNT 158 10^3/uL (130-450); RED BLOOD COUNT 4.95 10^6/uL (4.70-6.10); RED CELL DISTRIBUTION WIDTH 13.1 % (12.0-15.0); WHITE BLOOD COUNT 7.8 x10^3/uL (4.8-10.8)
[2022-07-28 01:05] LABS: ALBUMIN 3.8 g/dL (3.2-5.5); ALBUMIN/GLOBULIN RATIO 1.2 (1.0-2.2); BILIRUBIN,TOTAL 0.7 mg/dL (0.2-1.0); CREATININE 0.8 mg/dL (0.6-1.2); POTASSIUM 3.4 mmol/L (3.5-5.0); TOTAL PROTEIN 6.9 g/dL (6.7-8.2)
--- NOTE | 2022-07-28 03:03 | ED Physician Documentation ---
History of Present Illness - Stated complaint Stated Complaint: CHEST PX - Chief complaint Chief Complaint: Cardiac - Additonal information Additional information: Patient is 66-year-old male presenting to the emergency department with chief complaint of chest pain. Reports indigestion-like pain ongoing x1 day. States has had pain similar to this in the past. Does report recent travel, stating that he returned from [place] from vacation yesterday. States that he comes to the emergency department at the behest of his who would like him to "get checked out". He does report that he has had a cardiac work-up in the past at [facility] several years ago but denies any known history of coronary artery disease. Does report historyHypertension and sleep apnea but denies any history of diabetes, smoking, dyslipidemia. Currently reports that he is pain-free. Review of Systems Constitutional: denies: Fever Eyes: denies: Loss of vision Ears: denies: Loss of hearing Nose: denies: Rhinorrhea / runny nose Throat: denies: Dental pain / toothache Cardiac: reports: Chest pain / pressure GI: denies: Abdominal Pain : denies: Dysuria PD PAST MEDICAL HISTORY - Past Medical History Cardiovascular: Hypertension Respiratory: Sleep apnea, CPAP use Neuro: None Endocrine/Autoimmune: None GI: Colon polyps, Cholelithiasis : None HEENT: None Psych: None Musculoskeletal: None Derm: None - Past Surgical History Past Surgical History: Yes General: Cholecystectomy, Colonoscopy, EGD, Other - Present Medications Home Medications: Ambulatory Orders Medication Instructions Recorded Confirmed Tamsulosin HCl [Flomax] 0.4 mg PO DAILY PM #20 cap.er.24h 01/02/19 Losartan Potassium 100 mg PO DAILY 06/27/19 06/27/19 Meloxicam 15 mg PO DAILY 06/27/19 06/27/19 Multivitamin [Multiple Vitamins] 1 tab PO DAILY 06/27/19 06/27/19 Sildenafil Citrate [Revatio] 20 mg PO DAILY 06/27/19 06/27/19 Trazodone HCl 100 mg PO DAILY 06/27/19 06/27/19 hydroCHLOROthiazide 25 mg PO DAILY 06/27/19 06/27/19 [Hydrochlorothiazide] Oxycodone HCl/Acetaminophen 1 - 2 each PO Q6H PRN #14 tablet 03/10/21 [Percocet 5-325 mg Tablet] methocarbamoL [Robaxin] 500 mg PO Q6H PRN #20 tablet 03/10/21 methylPREDNISolone [Medrol] 4 mg PO DAILY #1 packet 03/10/21 - Allergies Allergies/Adverse Reactions: Allergies Allergy/AdvReac Type Severity Reaction Status Date / Time amoxicillin Allergy Hives Verified 07/28/22 00:28 - Social History Does the pt smoke?: No Smoking Status: Never smoker Does the pt drink ETOH?: No Does the pt have substance abuse?: No - Immunizations Immunizations are current?: Yes - POLST Patient has POLST: No PD ED PE NORMAL - Vitals Vital signs reviewed: Yes - General General: Alert and oriented X 3, No acute distress, Other (Obese) - HEENT HEENT: Atraumatic, PERRL, EOMI - Neck Neck: Supple, no meningeal sign - Cardiac Cardiac: RRR, No murmur, No gallop, Strong equal pulses - Respiratory Respiratory: No respiratory distress, Clear bilaterally - Abdomen Abdomen: Normal bowel sounds, Non tender - Male Male : Deferred - Rectal Rectal: Deferred - Derm Derm: Normal color - Extremities Extremities: No deformity - Neuro Neuro: Alert and oriented X 3, skid [address] man 2-12 intact, No motor deficit, No sensory deficit, Normal speech Results - Vitals Vitals: Vital Signs - 24 hr 07/28/22 07/28/22 07/28/22 00:18 00:54 01:24 Temperature 36.1 C L Heart Rate 56 L 56 L 53 L Respiratory 16 17 15 Rate Blood Pressure 163/105 H 158/77 H 150/82 H O2 Saturation 98 99 99 07/28/22 07/28/22 07/28/22 01:54 02:30 03:00 Temperature Heart Rate 55 L 53 L 52 L Respiratory 17 17 18 Rate Blood Pressure 155/81 H 148/97 H 166/91 H O2 Saturation 99 98 99 Oxygen O2 Source Room air - EKG (time done) 0018 EKG releavant findings:: EKG personally interpreted by author of this note. Relevant findings are: Sinus rhythm with rate 66 bpm. Normal axis. Right bundle branch block morphology. No concordant ST segment elevations, concordant ST segment depressions or excessive discordance in any lead. 0256 EKG releavant findings:: EKG personally interpreted by author of this note. Relevant findings are: Sinus rhythm with rate 49 bpm. Normal axis. Right bundle branch block morphology. No concordant ST segment elevations, concordant ST segment depressions or excessive discordance in any lead. - Labs Labs: Laboratory Tests 07/28/22 07/28/22 07/28/22 00:35 00:35 00:35 WBC 7.8 RBC 4.95 Hgb 14.8 Hct 45.4 MCV 91.7 MCH 29.9 MCHC 32.6 RDW 13.1 Plt Count 158 MPV 10.6 Neut # (Auto) 4.6 Lymph # (Auto) 2.2 Cameron # (Auto) 0.8 Eos # (Auto) 0.2 Baso # (Auto) 0.0 Absolute Nucleated RBC 0.00 Nucleated RBC % 0.0 D-Dimer 226.9 Sodium 142 Potassium 3.4 L Chloride 106 Carbon Dioxide 30 Anion Gap 6.0 BUN 15 Creatinine 0.8 Estimated GFR (MDRD) 97 Glucose 113 H Calcium 9.0 Total Bilirubin 0.7 AST 23 ALT 26 Alkaline Phosphatase 72 Troponin I High Sens Total Protein 6.9 Albumin 3.8 Globulin 3.1 Albumin/Globulin Ratio 1.2 Lipase 32 07/28/22 07/28/22 00:35 02:15 WBC RBC Hgb Hct MCV MCH MCHC RDW Plt Count MPV Neut # (Auto) Lymph # (Auto) Cameron # (Auto) Eos # (Auto) Baso # (Auto) Absolute Nucleated RBC Nucleated RBC % D-Dimer Sodium Potassium Chloride Carbon Dioxide Anion Gap BUN Creatinine Estimated GFR (MDRD) Glucose Calcium Total Bilirubin AST ALT Alkaline Phosphatase Troponin I High Sens 23.6 H* 23.9 H* Total Protein Albumin Globulin Albumin/Globulin Ratio Lipase PD Medical Decision Making - ED course Complexity details: reviewed results, re-evaluated patient, d/w patient ED course: Patient is a 66-year-old male with a past medical significant for hypertension, obesity, sleep apnea presenting to the emergency department with chest pain. Afebrile, hemodynamically stable on arrival to the emergency department. He did endorse for recent travel, specifically that he had returned from [place] yesterday. Initially described his pain as indigestion which she stated he has had several times in the past. He did report that his symptoms resolved prior to arrival. EKG demonstrated a right bundle branch block without indications of acute cardiac ischemia. There is no previous EKG available for comparison. His D-dimer was negative and his chest x-ray was nonacute. His initial troponin was 23.6. His repeat troponin was 23.9 with a delta of +0.3. All these findings were discussed directly with the patient. We discussed his risk factors for coronary artery disease. We also discussed the nature of high-sensitivity troponin as well as the somewhat reassuring nature that he has been pain-free here in the emergency department and that his troponin did not elevate in a significant manner between 0 and 2-hour rechecks. He did report that he felt safe leaving the emergency department for follow-up on an outpatient basis. He assured me that if his pain returned he would return to the emergency department for reevaluation. Otherwise clear return precautions were given prior to discharge. Departure - Departure Disposition: 01 Home, Self Care Clinical Impression: Chest pain, Right bundle branch block, Elevated troponin Comments: Thank you for allowing us to care for you today [facility]. Today in the emergency department your evaluated for any possible life- threatening medical emergency. You did have what is known as a right bundle branch block on your EKG. Often times this can be a normal variant however it is something that you should be aware of. You had a stable but small elevation in high-sensitivity troponins here in the emergency department. It is reassuring that these did not change in between measurement however it will be very important for you to follow-up with your primary care doctor and/or sccm administrator in the near future for further evaluation. If at any point your chest pain returns or if you develop other concerning symptoms such as dizziness, heart palpitations, lightheadedness Or have episodes of syncope or passing out please return to the emergency department immediately for reevaluation.
[2022-07-28 03:05] VITALS: BP 166/91
--- NOTE | 2022-07-28 07:55 | XRAY Report ---
PROCEDURE: Chest 1 View X-Ray INDICATIONS: chest pain TECHNIQUE: One view of the chest was acquired. COMPARISON: None. FINDINGS: Surgical changes and devices: None. Lungs and pleura: No pleural effusions or pneumothorax. Possible atelectasis at the left lung base. Mediastinum: Mediastinal contours appear normal. Heart size is normal. Bones and chest wall: No suspicious bony lesions. Overlying soft tissues appear unremarkable. IMPRESSION: No acute radiographic abnormality. No significant changes from the preliminary report. Reviewed by: Nik Lomas MD on 07/28/2022 7:54 AM PDT Approved by: Nik Lomas MD on 07/28/2022 7:54 AM PDT Station ID: [id number]
== END 2022-07-28 03:28 | disposition home or self-care (01) ==
LOC: ED 00:12
DX: R07.9 Chest pain, unspecified (principal); I10 Essential (primary) hypertension; I45.10 Unspecified right bundle-branch block; R77.8 Other specified abnormalities of plasma proteins
CPT/HCPCS: 36415; 80053; 83690; 84484; 85025; 85379; 93005; 99284

== ENCOUNTER 2022-08-08 08:17 | Outpatient (CLI) | payer MEDICARE, OTHER ==
[2022-08-08 12:59] LABS: BASOPHILS # (AUTO) 0.1 10^3/uL (0.0-0.1); BASOPHILS % (AUTO) 0.7 %; EOSINOPHILS # (AUTO) 0.1 10^3/uL (0.0-0.7); EOSINOPHILS % (AUTO) 1.3 %; HCT - HEMATOCRIT 48.8 % (42.0-52.0); HGB - HEMOGLOBIN 15.7 g/dL (14.0-18.0); LYMPHOCYTES # (AUTO) 1.6 10^3/uL (1.5-3.5); LYMPHOCYTES % (AUTO) 22.3 %; MEAN CORPUSCULAR HEMOGLOBIN 29.5 pg (27.0-31.0); MEAN CORPUSCULAR HGB CONC 32.2 g/dL (32.0-36.0); MEAN CORPUSCULAR VOLUME 91.7 fL (80.0-94.0); MEAN PLATELET VOLUME 11.1 fL (7.4-11.4); MONOCYTES # (AUTO) 0.6 10^3/uL (0.0-1.0); MONOCYTES % (AUTO) 8.1 %; NEUTROPHILS # (AUTO) 4.7 10^3/uL (1.5-6.6); NEUTROPHILS % (AUTO) 67.2 %; PLT - PLATELET COUNT 176 10^3/uL (130-450); RED BLOOD COUNT 5.32 10^6/uL (4.70-6.10); RED CELL DISTRIBUTION WIDTH 13.4 % (12.0-15.0)
[2022-08-08 13:30] LABS: ALBUMIN 4.3 g/dL (3.2-5.5); BILIRUBIN,DIRECT 0.2 mg/dL (0.1-0.5); BILIRUBIN,TOTAL 1.9 mg/dL (0.2-1.0); TOTAL PROTEIN 7.5 g/dL (6.7-8.2)
== END 2022-08-08 08:18 | disposition home or self-care (01) ==
LOC: LAB.N 08:17
PROVIDERS: ATTEND Family Medicine
DX: B35.1 Tinea unguium (principal)
CPT/HCPCS: 36415; 80076; 85025

== ENCOUNTER 2022-09-19 08:14 | Outpatient (CLI) | payer MEDICARE, OTHER ==
[2022-09-19 12:55] LABS: BASOPHILS % (AUTO) 0.5 %; EOSINOPHILS # (AUTO) 0.1 10^3/uL (0.0-0.7); HCT - HEMATOCRIT 44.2 % (42.0-52.0); HGB - HEMOGLOBIN 14.4 g/dL (14.0-18.0); LYMPHOCYTES # (AUTO) 1.3 10^3/uL (1.5-3.5); MEAN CORPUSCULAR HEMOGLOBIN 29.9 pg (27.0-31.0); MEAN CORPUSCULAR HGB CONC 32.6 g/dL (32.0-36.0); MEAN CORPUSCULAR VOLUME 91.9 fL (80.0-94.0); MONOCYTES # (AUTO) 0.5 10^3/uL (0.0-1.0); MONOCYTES % (AUTO) 8.1 %; NEUTROPHILS % (AUTO) 67.2 %; PLT - PLATELET COUNT 166 10^3/uL (130-450); RED BLOOD COUNT 4.81 10^6/uL (4.70-6.10); RED CELL DISTRIBUTION WIDTH 13.4 % (12.0-15.0)
[2022-09-19 13:11] LABS: ALBUMIN 3.8 g/dL (3.2-5.5); BILIRUBIN,DIRECT 0.1 mg/dL (0.1-0.5); BILIRUBIN,TOTAL 1.1 mg/dL (0.2-1.0); TOTAL PROTEIN 6.9 g/dL (6.7-8.2)
== END 2022-09-19 08:15 | disposition home or self-care (01) ==
LOC: LAB.N 08:14
PROVIDERS: ATTEND Physician Assistant
DX: B35.1 Tinea unguium (principal)
CPT/HCPCS: 36415; 80076; 85025

== ENCOUNTER 2022-12-27 13:15 | Outpatient (CLI) | payer MEDICARE, OTHER ==
[2022-12-27 17:50] LABS: BASOPHILS % (AUTO) 0.4 %; EOSINOPHILS # (AUTO) 0.2 10^3/uL (0.0-0.7); EOSINOPHILS % (AUTO) 2.4 %; HCT - HEMATOCRIT 28.6 % (42.0-52.0); HGB - HEMOGLOBIN 8.3 g/dL (14.0-18.0); LYMPHOCYTES % (AUTO) 13.8 %; MEAN CORPUSCULAR VOLUME 103.2 fL (80.0-94.0); MEAN PLATELET VOLUME 11.9 fL (7.4-11.4); MONOCYTES # (AUTO) 0.5 10^3/uL (0.0-1.0); MONOCYTES % (AUTO) 7.2 %; NEUTROPHILS # (AUTO) 5.7 10^3/uL (1.5-6.6); NEUTROPHILS % (AUTO) 75.8 %; PLT - PLATELET COUNT 239 10^3/uL (130-450); RED BLOOD COUNT 2.77 10^6/uL (4.70-6.10); RED CELL DISTRIBUTION WIDTH 18.2 % (12.0-15.0); WHITE BLOOD COUNT 7.5 x10^3/uL (4.8-10.8)
[2022-12-27 18:11] LABS: ALBUMIN 3.3 g/dL (3.2-5.5); ALBUMIN/GLOBULIN RATIO 1.4 (1.0-2.2); POTASSIUM 4.2 mmol/L (3.5-4.5); TOTAL PROTEIN 5.7 g/dL (6.4-8.9)
== END 2022-12-27 13:16 | disposition home or self-care (01) ==
LOC: LAB.N 13:15
PROVIDERS: ATTEND Nurse Practitioner
DX: D64.9 Anemia, unspecified (principal); E87.6 Hypokalemia
CPT/HCPCS: 36415; 80053; 85025

== ENCOUNTER 2023-03-06 07:22 | Outpatient (CLI) | payer MEDICARE, OTHER ==
[2023-03-06 12:37] LABS: BASOPHILS % (AUTO) 0.7 %; EOSINOPHILS # (AUTO) 0.2 10^3/uL (0.0-0.7); HCT - HEMATOCRIT 39.4 % (42.0-52.0); HGB - HEMOGLOBIN 12.2 g/dL (14.0-18.0); LYMPHOCYTES # (AUTO) 1.3 10^3/uL (1.5-3.5); LYMPHOCYTES % (AUTO) 21.9 %; MEAN CORPUSCULAR HEMOGLOBIN 27.7 pg (27.0-31.0); MEAN CORPUSCULAR VOLUME 89.5 fL (80.0-94.0); MEAN PLATELET VOLUME 12.4 fL (7.4-11.4); MONOCYTES # (AUTO) 0.7 10^3/uL (0.0-1.0); MONOCYTES % (AUTO) 11.5 %; NEUTROPHILS # (AUTO) 3.8 10^3/uL (1.5-6.6); NEUTROPHILS % (AUTO) 62.4 %; PLT - PLATELET COUNT 164 10^3/uL (130-450); RED CELL DISTRIBUTION WIDTH 14.3 % (12.0-15.0); RETICULOCYTE COUNT % (AUTO) 1.13 % (0.5-2.3); WHITE BLOOD COUNT 6.1 x10^3/uL (4.8-10.8)
[2023-03-06 13:00] LABS: THYROID STIMULATING HORMONE 2.49 uIU/mL (0.34-5.60)
[2023-03-06 13:02] LABS: % IRON SATURATION 8 % (20-50); ALBUMIN 3.9 g/dL (3.2-5.5); ALBUMIN/GLOBULIN RATIO 1.4 (1.0-2.2); ALKALINE PHOSPHATASE 105 IU/L (42-121); ALT ALANINE AMINOTRANSFERASE 43 IU/L (10-60); AST ASPARTATE AMINOTRANSFERASE 44 IU/L (10-42); BILIRUBIN,TOTAL 0.7 mg/dL (0.2-1.0); BUN - BLOOD UREA NITROGEN 17 mg/dL (6-20); CALCIUM 9.7 mg/dL (8.5-10.3); CARBON DIOXIDE - CO2 30 mmol/L (21-32); CHLORIDE 111 mmol/L (101-111); CHOL/HDL RATIO 2.4 (<5.0); CHOLESTEROL 98 mg/dL; CREATININE 0.7 mg/dL (0.6-1.3); GFR - MDRD 112 (>89); GLUCOSE 95 mg/dL (74-104); HDL CHOLESTEROL 41 mg/dL; IRON 27 ug/dL (50-212); LDL CHOLESTEROL,CALCULATED 45 mg/dL; LDL/HDL RATIO 1.1 (<3.6); POTASSIUM 4.3 mmol/L (3.5-4.5); SODIUM 143 mmol/L (135-145); TOTAL IRON BINDING CAPACITY 340 ug/dL (250-450); TOTAL PROTEIN 6.6 g/dL (6.4-8.9); TRANSFERRIN 243 mg/dL (203-362); TRIGLYCERIDES 59 mg/dL (48-352); VLDL CHOLESTEROL 12 mg/dL
[2023-03-06 13:07] LABS: FERRITIN 12.8 ng/mL (23.9-336.2)
== END 2023-03-06 07:23 | disposition home or self-care (01) ==
LOC: LAB.N 07:22
PROVIDERS: ATTEND Family Medicine
DX: D64.9 Anemia, unspecified (principal); E87.6 Hypokalemia; E83.42 Hypomagnesemia; Z15.01 Genetic susceptibility to malignant neoplasm of breast; I10 Essential (primary) hypertension; K21.9 Gastro-esophageal reflux disease without esophagitis; E78.5 Hyperlipidemia, unspecified
CPT/HCPCS: 36415; 80053; 80061; 82607; 82728; 82746; 83540; 83721; 84443; 84466; 85025; 85045

== ENCOUNTER 2023-04-10 08:00 | Outpatient (CLI) | payer MEDICARE, OTHER ==
--- NOTE | 2023-04-10 09:18 | XRAY Report ---
PROCEDURE: Lumbar Spine 2 View INDICATIONS: LEFT FLANK PAIN TECHNIQUE: 3 views of the lumbar spine were acquired. COMPARISON: None. FINDINGS: Bones: 5 [id number] vertebrae are present. There is a mild lumbar scoliosis convex left. No margoth tebral body compression fractures. No suspicious bony lesions. There is a moderate diffuse degenerative disc disease noted at all levels. Soft tissues: Overlying bowel gas pattern is normal. Atherosclerotic vascular calcifications are pre sent. There is a calcific density projecting over the patient's right kidney which may represent a right re nal calculus. IMPRESSION: 1. No evidence for acute osseous abnormality involving the lumbar spine. 2. Mild lumbar scoliosis convex to the left. 3. Moderate diffuse degenerative disc disease noted at all levels. 4. Atherosclerotic vascular calcifications. 5. 3 to 4 mm calcific density projecting over the patient's right kidney which may represent a renal calculus. Reviewed by: Wesley Paul MD on 04/10/2023 9:16 AM PST Approved by: Wesley Paul MD on 04/10/2023 9:16 AM PST Station ID: [id number]
[2023-04-10 12:47] LABS: BASOPHILS # (AUTO) 0.1 10^3/uL (0.0-0.1); BASOPHILS % (AUTO) 0.9 %; EOSINOPHILS # (AUTO) 0.1 10^3/uL (0.0-0.7); EOSINOPHILS % (AUTO) 1.6 %; HCT - HEMATOCRIT 45.1 % (42.0-52.0); HGB - HEMOGLOBIN 13.7 g/dL (14.0-18.0); LYMPHOCYTES # (AUTO) 1.2 10^3/uL (1.5-3.5); MEAN CORPUSCULAR HEMOGLOBIN 26.6 pg (27.0-31.0); MEAN CORPUSCULAR HGB CONC 30.4 g/dL (32.0-36.0); MEAN CORPUSCULAR VOLUME 87.6 fL (80.0-94.0); MONOCYTES # (AUTO) 0.5 10^3/uL (0.0-1.0); MONOCYTES % (AUTO) 8.9 %; NEUTROPHILS # (AUTO) 3.9 10^3/uL (1.5-6.6); NEUTROPHILS % (AUTO) 68.3 %; PLT - PLATELET COUNT 171 10^3/uL (130-450); RED BLOOD COUNT 5.15 10^6/uL (4.70-6.10); RED CELL DISTRIBUTION WIDTH 15.9 % (12.0-15.0); WHITE BLOOD COUNT 5.8 x10^3/uL (4.8-10.8)
[2023-04-10 13:19] LABS: CALCIUM 9.9 mg/dL (8.5-10.3); CREATININE 0.7 mg/dL (0.6-1.3)
[2023-04-10 13:36] LABS: BILIRUBIN,URINE NEGATIVE (NEGATIVE); GLUCOSE, URINE (UA) NEGATIVE (NEGATIVE); KETONES,URINE (UA) NEGATIVE (NEGATIVE); LEUKOCYTE ESTERASE, URINE NEGATIVE (NEGATIVE); NITRITE,URINE NEGATIVE (NEGATIVE); OCCULT BLOOD,URINE MODERATE (NEGATIVE); PH,URINE 6.5 PH (5.0-7.5); PROTEIN,URINE NEGATIVE (NEGATIVE); UROBILINOGEN,URINE 0.2 (NORMAL) E.U./dL (NORMAL)
[2023-04-10 13:56] LABS: CLARITY,URINE CLEAR (CLEAR)
[2023-04-10 14:07] LABS: BACTERIA,URINE Few /HPF (None Seen); SQUAMOUS EPITHELIAL CELL,UR RARE Squamous (<= Few); WBC,URINE 0-3 /HPF (0-3)
[2023-04-10 14:08] LABS: MUCUS,URINE Few Strands
== END 2023-04-10 08:15 | disposition home or self-care (01) ==
LOC: DI.N 08:00
PROVIDERS: ATTEND Physician Assistant Medical
DX: R10.9 Unspecified abdominal pain (principal); M51.36 Other intervertebral disc degeneration, lumbar region; I70.90 Unspecified atherosclerosis
CPT/HCPCS: 36415; 80048; 81001; 83690; 85025; 87086

== ENCOUNTER 2023-04-17 15:16 | Outpatient (CLI) | payer MEDICARE, OTHER ==
[2023-04-17 18:08] LABS: H. PYLORIS ANTIGEN STL NEGATIVE (Negative)
== END 2023-04-17 15:17 | disposition home or self-care (01) ==
LOC: LAB 15:16 → LAB.R 15:17
PROVIDERS: ATTEND Internal Medicine Gastroenterology
DX: K26.0 Acute duodenal ulcer with hemorrhage (principal); Z79.01 Long term (current) use of anticoagulants
CPT/HCPCS: 87338

== ENCOUNTER 2023-05-08 07:59 | Emergency (ER) | payer MEDICARE, OTHER ==
[2023-05-08] MEDS ORDERED: ONDANSETRON 4 MG/2 ML VIAL IVP STA (08:34)
[2023-05-08] MEDS ORDERED: MORPHINE 2 MG/ML CARPUJECT IVP STA (08:34)
--- NOTE | 2023-05-08 08:36 | ED Physician Documentation ---
History of Present Illness - Stated complaint Stated Complaint: BACK PX - Chief complaint Chief Complaint: Abd Pain - Additonal information Additional information: Patient 67-year-old male presenting to the emergency department with right-sided flank and back pain. Pain ongoing x 1 week. Initially attributed his pain to a musculoskeletal injury that happened while he was "twisting and reaching behind me in the truck". Reports pain has remained persistent throughout this time and he is concerned that he could have a kidney stone. Reports has a history of kidney stones and was diagnosed with a distended stone a few months ago. Denies any fever, saddle paresthesias, bowel or bladder incontinence, lower extremity weakness or pain radiating down his legs. Denies any dysuria, hematuria, fever, chest pain, shortness of breath, abdominal pain, nausea, vomiting, diarrhea, constipation. Review of Systems Constitutional: denies: Fever Eyes: denies: Loss of vision Ears: denies: Loss of hearing Nose: denies: Rhinorrhea / runny nose Cardiac: denies: Chest pain / pressure GI: denies: Abdominal Pain, Nausea, Vomiting, Constipation, Diarrhea : denies: Dysuria Musculoskeletal: reports: Back pain PD PAST MEDICAL HISTORY - Past Medical History Past Medical History: Yes Cardiovascular: Hypertension, Coronary artery disease Respiratory: Sleep apnea, CPAP use Neuro: None Endocrine/Autoimmune: None GI: Colon polyps, Cholelithiasis : None HEENT: None Psych: None Musculoskeletal: None Derm: None - Past Surgical History Past Surgical History: Yes General: Cholecystectomy, Colonoscopy, EGD, Other Cardiovascular: Coronary stent - Present Medications Home Medications: Ambulatory Orders Medication Instructions Recorded Confirmed Losartan Potassium 100 mg PO DAILY 06/27/19 09/23/22 Multivitamin [Multiple Vitamins] 1 tab PO DAILY 06/27/19 09/23/22 Trazodone HCl 100 mg PO DAILY 06/27/19 09/23/22 hydroCHLOROthiazide 25 mg PO DAILY 06/27/19 09/23/22 [Hydrochlorothiazide] methocarbamoL [Robaxin] 500 mg PO Q6H PRN #20 tablet 03/10/21 09/23/22 Cholecalciferol (Vitamin D3) See Rx Instructions .ROUTE .COMPLEX 09/22/22 09/23/22 [Vitamin D3] Magnesium Oxide [Magnesium] See Rx Instructions .ROUTE .COMPLEX 09/22/22 09/23/22 [place]-3/Dha/Epa/Fish Oil [Fish Oil See Rx Instructions .ROUTE .COMPLEX 09/22/22 09/23/22 1,000 mg Softgel] amLODIPine [Norvasc] See Rx Instructions .ROUTE .COMPLEX 09/22/22 09/23/22 terbinafine HCL [Terbinafine HCl] See Rx Instructions .ROUTE .COMPLEX 09/22/22 09/23/22 Ibuprofen [Motrin] 800 mg PO Q8H PRN #30 tablet 05/08/23 Lidocaine Patch 5% [Lidoderm Patch] 1 patch TOP DAILY PRN #10 patch 05/08/23 Oxycodone HCl/Acetaminophen 1 - 2 each PO Q6H PRN #14 tablet 05/08/23 [Percocet 5-325 mg Tablet] - Allergies Allergies/Adverse Reactions: Allergies Allergy/AdvReac Type Severity Reaction Status Date / Time amoxicillin Allergy Hives Verified 05/08/23 08:12 - Social History Does the pt smoke?: No Smoking Status: Never smoker Does the pt drink ETOH?: No Does the pt have substance abuse?: No - Immunizations Immunizations are current?: Yes - POLST Patient has POLST: No PD ED PE NORMAL - Vitals Vital signs reviewed: Yes - General General: Alert and oriented X 3, No acute distress, Well developed/nourished - HEENT HEENT: Atraumatic, PERRL, EOMI, Ears normal, Moist mucous membranes - Neck Neck: Supple, no meningeal sign - Cardiac Cardiac: RRR - Respiratory Respiratory: No respiratory distress - Abdomen Abdomen: Normal bowel sounds, Non tender - Male Male : Deferred - Back Back: No CVA TTP, No spinal TTP - Neuro Neuro: Alert and oriented X 3, 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, No motor deficit, Normal speech Results - Vitals Vitals: Vital Signs - 24 hr 05/08/23 05/08/23 08:08 10:11 Temperature 36.4 C L Heart Rate 58 L 50 L Respiratory 20 20 Rate Blood Pressure 192/106 H 133/69 H O2 Saturation 97 98 Oxygen O2 Source Room air - Labs Labs: Laboratory Tests 05/08/23 05/08/23 05/08/23 08:53 08:53 09:06 WBC 6.9 RBC 5.31 Hgb 14.2 Hct 45.8 MCV 86.3 MCH 26.7 L MCHC 31.0 L RDW 17.3 H Plt Count 152 MPV 11.1 Neut # (Auto) 4.7 Lymph # (Auto) 1.3 L [place] # (Auto) 0.7 Eos # (Auto) 0.1 Baso # (Auto) 0.0 Absolute Nucleated RBC 0.00 Nucleated RBC % 0.0 Sodium 142 Potassium 4.2 Chloride 109 Carbon Dioxide 28 Anion Gap 5.0 L BUN 19 Creatinine 0.8 Estimated GFR (MDRD) 96 Glucose 97 Calcium 9.8 Total Bilirubin 1.3 H AST 20 ALT 25 Alkaline Phosphatase 79 Total Protein 6.6 Albumin 4.1 Globulin 2.5 Albumin/Globulin Ratio 1.6 Lipase 21 Urine Color YELLOW Urine Clarity CLEAR Urine pH 6.0 Ur Specific [place] 1.025 Urine Protein NEGATIVE Urine Glucose (UA) NEGATIVE Urine Ketones NEGATIVE Urine Occult Blood TRACE-INTA Urine Nitrite NEGATIVE Urine Bilirubin NEGATIVE Urine Urobilinogen 1 (NORMAL) Ur Leukocyte Esterase NEGATIVE Ur Microscopic Review NOT INDICATED Urine Culture Comments NOT INDICATED PD Medical Decision Making - ED course Complexity details: reviewed results, d/w patient ED course: Patient 67-year-old male presenting to the emergency department with right-sided low back pain. Does have history of kidney stone. Labs, urine, CT abdomen pelvis reassuring. 5 mm undistended stone noted in the right kidney but no acute intra-abdominal pathology noted. Given dose morphine in the emergency department with significant symptomatic relief. Will discharge with medication for symptomatic management and encourage careful follow-up with primary care. Clear return precautions given. Departure - Departure Disposition: 01 Home, Self Care Clinical Impression: Back pain Qualifiers: Back pain location: low back pain Chronicity: acute Back pain laterality: right Sciatica presence: without sciatica Qualified Code(s): M54.50 - Low back pain, unspecified Instructions: NARCOTIC, Oral, IBUPROFEN (Adult) Prescriptions: Lidocaine Patch 5% [Lidoderm Patch] 1 patch TOP DAILY PRN #10 patch PRN Reason: pain Ibuprofen [Motrin] 800 mg PO Q8H PRN #30 tablet PRN Reason: PAIN &/OR FEVER Oxycodone HCl/Acetaminophen [Percocet 5-325 mg Tablet] 1 - 2 each PO Q6H PRN #14 tablet PRN Reason: pain Comments: Thank you for allowing us to care for you today [facility]. Today in the emergency department you were evaluated for any possible dangerous or life-threatening medical emergency. Overall your testing in the emergency department today including your blood work, urine analysis and the CT scan of your abdomen and pelvis were all very reassuring. You were noted to have a 5 mm calcification in your right kidney however this is not distended into your ureter and is unlikely to be contributing to your symptoms. I believe it is most likely that the symptoms you are experiencing are from musculoskeletal strain to your low back. Emergency medications to help with your symptoms. Please take these as directed. Please drink plenty of fluids. I do recommend gentle activity as tolerated as complete inactivity can make back pain such as what you are experiencing worse over time. It is important that you follow-up with your primary care doctor soon as possible concerning your ER visit. If it anytime you develop any new or worsening symptoms please not hesitate to return. Forms: PCP List
[2023-05-08 09:04] LABS: BASOPHILS % (AUTO) 0.4 %; EOSINOPHILS # (AUTO) 0.1 10^3/uL (0.0-0.7); EOSINOPHILS % (AUTO) 1.6 %; HCT - HEMATOCRIT 45.8 % (42.0-52.0); HGB - HEMOGLOBIN 14.2 g/dL (14.0-18.0); LYMPHOCYTES # (AUTO) 1.3 10^3/uL (1.5-3.5); LYMPHOCYTES % (AUTO) 19.2 %; MEAN CORPUSCULAR HEMOGLOBIN 26.7 pg (27.0-31.0); MEAN CORPUSCULAR VOLUME 86.3 fL (80.0-94.0); MEAN PLATELET VOLUME 11.1 fL (7.4-11.4); MONOCYTES # (AUTO) 0.7 10^3/uL (0.0-1.0); MONOCYTES % (AUTO) 10.7 %; NEUTROPHILS # (AUTO) 4.7 10^3/uL (1.5-6.6); NEUTROPHILS % (AUTO) 67.8 %; PLT - PLATELET COUNT 152 10^3/uL (130-450); RED BLOOD COUNT 5.31 10^6/uL (4.70-6.10); RED CELL DISTRIBUTION WIDTH 17.3 % (12.0-15.0); WHITE BLOOD COUNT 6.9 x10^3/uL (4.8-10.8)
[2023-05-08 09:17] LABS: ALBUMIN 4.1 g/dL (3.2-5.5); ALBUMIN/GLOBULIN RATIO 1.6 (1.0-2.2); BILIRUBIN,TOTAL 1.3 mg/dL (0.2-1.0); CALCIUM 9.8 mg/dL (8.5-10.3); CREATININE 0.8 mg/dL (0.6-1.3); POTASSIUM 4.2 mmol/L (3.5-4.5); TOTAL PROTEIN 6.6 g/dL (6.4-8.9)
[2023-05-08 09:18] LABS: BILIRUBIN,URINE NEGATIVE (NEGATIVE); GLUCOSE, URINE (UA) NEGATIVE (NEGATIVE); KETONES,URINE (UA) NEGATIVE (NEGATIVE); LEUKOCYTE ESTERASE, URINE NEGATIVE (NEGATIVE); NITRITE,URINE NEGATIVE (NEGATIVE); OCCULT BLOOD,URINE TRACE-INTA (NEGATIVE); PROTEIN,URINE NEGATIVE (NEGATIVE); UROBILINOGEN,URINE 1 (NORMAL) E.U./dL (NORMAL)
[2023-05-08 09:22] LABS: CLARITY,URINE CLEAR (CLEAR)
--- NOTE | 2023-05-08 10:32 | CT Report ---
PROCEDURE: ABDOMEN/PELVIS WO INDICATIONS: flank pain. h/o kidney stone TECHNIQUE: A CT scan of the abdomen and pelvis was performed without the use of intravenous contrast. Images we re recorded and evaluated at appropriate window settings. Reformats: coronal and sagittal. For radiat ion dose reduction, the following was used: automated exposure control, adjustment of mA and/or kV ac cording to patient size. COMPARISON: 01/02/2019 FINDINGS: Image quality: Excellent. Lung bases and heart: Focal atelectasis can be seen of the right lung base. The heart size is near th e upper limits of normal. No significant pericardial effusion can be seen. Moderate coronary calcific ation can be seen. Liver: No solid mass. There is a simple left liver dome cyst seen, as on series 2 image 14. Gallbladder and biliary tree: Cholecystectomy Spleen: No splenomegaly. Pancreas: No pancreatic ductal dilation. Adrenals: No adrenal nodule. Kidneys and ureters: There is a 5 mm nonobstructing right-sided kidney stone that measures 550 Hounsf ield units. No right-sided hydronephrosis is seen. No left-sided hydronephrosis is seen. No left-side d kidney stones are seen. Along the posterior lateral aspect of the left kidney, there is an exophyti c water density cyst seen measuring 3.9 cm. Bowel and peritoneum: No bowel distension. No pathologic free fluid. Lymph nodes: No central or retroperitoneal adenopathy. Vessels: No infrarenal aortic aneurysm. Atherosclerotic calcification is seen. PELVIS Reproductive organs: Unremarkable. Bladder: Moderate bladder wall thickening is seen. Pelvic lymph nodes: No pelvic adenopathy by size criteria. Bones: No aggressive osseous abnormality. Mild levoconvex scoliotic curvature is seen. Degenerative changes are seen throughout, which are worst involving the lumbar spine. Other: Bilateral fat-containing inguinal hernias are seen, left larger than right. IMPRESSION: 5 mm nonobstructing right-sided kidney stone. No hydronephrosis or findings of obstructive uropathy can be seen on either side. Additional findings: Focal left lung base atelectasis Moderate coronary artery calcification Simple left liver dome cyst Cholecystectomy Simple left kidney cyst Moderate bladder wall thickening, please correlate with bladder obstruction Bilateral fat-containing inguinal hernias Reviewed by: Marcellus Reveles MD on 05/08/2023 9:31 AM [place] Approved by: Marcellus Reveles MD on 05/08/2023 9:31 AM [facility] Station ID: [id number]
[2023-05-08 10:59] VITALS: BP 133/69; O2SAT 98
[2023-05-08] MEDS ORDERED: KETOROLAC 30 MG/ML VIAL IVP STA (11:19)
[2023-05-08] MEDS ORDERED: oxyCODONE/ACET 5/325 Prepack 4 PO STA (11:27)
== END 2023-05-08 12:15 | disposition home or self-care (01) ==
LOC: ED 07:59
DX: M54.50 Low back pain, unspecified (principal); N20.0 Calculus of kidney; Z87.442 Personal history of urinary calculi
CPT/HCPCS: 36415; 80053; 81001; 81003; 83690; 85025; 87086; 96374; 96375; 99284

== ENCOUNTER 2023-05-29 09:56 | Outpatient (CLI) | payer MEDICARE ==
[2023-05-29 10:13] LABS: HCT - HEMATOCRIT 43.6 % (42.0-52.0); HGB - HEMOGLOBIN 13.6 g/dL (14.0-18.0); MEAN CORPUSCULAR HEMOGLOBIN 27.1 pg (27.0-31.0); MEAN CORPUSCULAR HGB CONC 31.2 g/dL (32.0-36.0); MEAN PLATELET VOLUME 10.2 fL (7.4-11.4); RED BLOOD COUNT 5.01 10^6/uL (4.70-6.10); RED CELL DISTRIBUTION WIDTH 16.3 % (12.0-15.0); WHITE BLOOD COUNT 7.7 x10^3/uL (4.8-10.8)
[2023-05-29 10:29] LABS: ALBUMIN 3.8 g/dL (3.2-5.5); ALBUMIN/GLOBULIN RATIO 1.4 (1.0-2.2); BILIRUBIN,TOTAL 1.9 mg/dL (0.2-1.0); CALCIUM 9.4 mg/dL (8.5-10.3); CREATININE 0.8 mg/dL (0.6-1.3); MAGNESIUM 1.6 mg/dL (1.7-2.3); POTASSIUM 4.1 mmol/L (3.5-4.5); TOTAL PROTEIN 6.5 g/dL (6.4-8.9)
[2023-05-29 10:43] LABS: THYROID STIMULATING HORMONE 2.06 uIU/mL (0.34-5.60)
== END 2023-05-29 09:57 | disposition home or self-care (01) ==
LOC: LAB 09:56
PROVIDERS: ATTEND Nurse Practitioner
DX: R00.2 Palpitations (principal); I49.3 Ventricular premature depolarization; Z95.1 Presence of aortocoronary bypass graft
CPT/HCPCS: 36415; 80053; 83735; 84443; 85027

== ENCOUNTER 2023-05-31 12:26 | Outpatient (CLI) | payer MEDICARE, OTHER | END 2023-05-31 12:27 | disposition home or self-care (01) | LOC: RT 12:26 | PROVIDERS: ATTEND Nurse Practitioner | DX: I48.0 Paroxysmal atrial fibrillation (principal) | CPT/HCPCS: 93005 ==

== ENCOUNTER 2023-09-20 08:31 | Outpatient (CLI) | payer MEDICARE ==
--- NOTE | 2023-09-20 09:05 | Sleep Patient Instructions ---
Sleep Center Visit Summary - Patient Visit Information Reason for Visit: Annual Follow up - Patient Instructions Additional Instructions: You will continue with CPAP therapy with pressure set at 14-17 cmH2O. A supply prescription will be updated with your DME. I have added an order to update your PAP machine. Please call the office to schedule a compliance follow up once you get your new device. We encourage you to continue to try to lose weight. Please follow up with the sleep care office one month after obtaining new device. - Clinic Information Contact: [facility] [address] [place] [address] [email or web address] T: [phone]
--- NOTE | 2023-09-20 09:12 | SLEEP CARE CONSULTATION ---
Information from patient questionnaire entered by Marita Cordero. I have reviewed and concur with the information entered by Marita Cordero. This document represents the service I personally performed and the decisions made by me, Bettina Ray ARNP. History of Present Illness Service Date and Time: 09/20/2023 0840 Previous diagnosis: Moderate, Obstructive Sleep Apnea-Hypopnea Syndrome AHI: 25 (01/29/2007) Reason for follow up: annual (LAST SEEN 09/2022) Equipment type: CPAP (RESMED Airsense 11, s/u 06/09/2021; he has a Dreamstation 2) Equipment obtained from: [email or web address] ([employer] supplies) Mask style: Nasal Mask brand: Resmed ([employer]age [employer], medium cushion) Backup mask available: Yes Last cushion change: rotate every 3-5 days through 6 mask cushions Prior sleep studies: Yes Year and Where: FEB 1999 HPI additional information: EDEL TRIANA was diagnosed to have moderate, AHI 25, obstructive sleep apnea- hypopnea syndrome and returned today for CPAP therapy annual follow-up. Sleep Study - Results Prior sleep studies: Yes Year and Where: FEB 1999 CPAP Compliance Data - Data Reviewed with Patient Average duration of nightly device use: 6 HRS 28 MINS Compliance rate %: 81 (09/18/22-09/17/23; 310/365 days used) Current pressure setting (cmH2O): 13-16 Average residual AHI: 5.4 Central apnea: 0.3 Obstructive apnea: 2 Hypopnea: 2.7 Average large leak: 3.6 L/min Compliance data discussion: He uses his Dreamstation 2 for travel and when he was in the hospital. It is set at 14-17 cmH2O with AHI of 2 adn 8.2% use in last year. Subjective Missed days of use due to: reports: illness (hospitalized) Patient concerns: denies: aerophagia, mask discomfort, air blowing in eyes, mask leak noise, condensation in mask/hose, nasal congestion, dry mouth, nose, throat, epistaxis Observed to snore while using device: No Current pressure setting perceived as: comfortable On therapy, patient: reports: sleeping better, awakening more refreshed, being more awake and alert during the day, more rested overall. denies: drowsiness while driving Initial [place] Sleepiness Scale score: 7 (06/27/22) Current [place] Sleepiness Scale score: 6 (09/20/23) Allergies and Home Medications Known drug allergies: Yes (as listed) Drug allergies reviewed: Yes Home medication list reviewed: Yes (as listed, some changes since open heart surgery) Allergy and home medication list: Allergies amoxicillin Allergy (Verified 05/08/23 08:12) Hives Home Medications Medication Instructions Recorded Confirmed Last Taken Type Losartan Potassium 100 mg PO DAILY 06/27/19 09/20/23 07/27/22 History Multivitamin [Multiple Vitamins] 1 tab PO DAILY 06/27/19 09/20/23 07/27/22 History Trazodone HCl 100 mg PO DAILY 06/27/19 09/20/23 07/27/22 History Cholecalciferol (Vitamin D3) See Rx Instructions .ROUTE .COMPLEX 09/22/22 09/20/23 Unknown History [Vitamin D3] Magnesium Oxide [Magnesium] See Rx Instructions .ROUTE .COMPLEX 09/22/22 09/20/23 Unknown History [place]-3/Dha/Epa/Fish Oil [Fish Oil See Rx Instructions .ROUTE .COMPLEX 09/22/22 09/20/23 Unknown History 1,000 mg Softgel] Acetaminophen [Tylenol] See Rx Instructions .ROUTE .COMPLEX 09/20/23 09/20/23 Unknown History Aspirin [[place]] See Rx Instructions .ROUTE .COMPLEX 09/20/23 09/20/23 Unknown History Atorvastatin Calcium [Lipitor] See Rx Instructions .ROUTE .COMPLEX 09/20/23 09/20/23 Unknown History Metoprolol Succinate [Toprol Xl] See Rx Instructions .ROUTE .COMPLEX 09/20/23 09/20/23 Unknown History Pantoprazole Sodium [Protonix] See Rx Instructions .ROUTE .COMPLEX 09/20/23 09/20/23 Unknown History Review of Systems Review of systems same as previous: No (DOUBLE BYPASS NOVEMBER 2022) Physical Exam Vital signs obtained and entered by: MARITA Julian MA Blood Pressure: 157/94 (LEFT ARM) Cuff size: long Heart Rate: 69 O2 Saturation: 99 Height: 6 ft Weight: 286 lb Weight change since last visit: 13 lb loss Body Mass Index: 38.7 BMI Classification: Obese Impression and Plan 1. Obstructive Sleep Apnea-Hypopnea Syndrome, moderate, with good treatment compliance and fair apnea control with minimal elevation of residual AHI. On CPAP therapy, the patient has better sleep quality and is more rested overall. His pressure was at 14-17 cmH2O at last visit with good apnea control. He has a Dreamstation 2 that he uses for a travel machine that is set at the right pressures. I will have his ResMed Airsense 11s pressure changed back to autoCPAP 14-17 cmH20 for elevation of residual AHI. Patient advised to contact me if pressure change is uncomfortable so that it can be adjusted. Goals for apnea control discussed. He says that his DME Michael told him he is eligible for a new device and he would like to get a new machine. A DWO prescription will be made. Compliance guidelines for new device and follow up discussed. Patient's apnea severity and rationale for treatment to reduce apnea, improve sleep quality and reduce cardiovascular and cerebrovascular events was reviewed. I al so reviewed the benefit of consistent device use of CPAP for hypertension. 2. Obesity, unspecified. Currently patients BMI is 38.7. Obesity increases the risk of apnea, CPAP pressure requirements and overall health risks especially cardiovascular and diabetes. Thus patient is advised to continue to try to lose weight. * Update machine * Update supply prescription * Continue auto CPAP pressure to 14-17 cmH2O * Notify me if snoring with mask or feeling that the pressure is too much or too little * Attempt to lose weight * Call this office if any problems using CPAP * Return for follow up one month after updating new device, or sooner if concerns arise Counseling Topics: Weight loss health impact Prescriptions: Auto CPAP, Device supplies Plan: compliance follow up with new CPAP Visit Type: In Office Time Spent with Patient (minutes): 26 Provider Statement: I spent 100% of the Face to Face Visit with the patient with greater than 50% spent counseling the patient and coordination of care.
[2023-09-20 09:18] VITALS: BP 157/94; O2SAT 99
== END 2023-09-20 08:32 | disposition home or self-care (01) ==
LOC: SC 08:31
PROVIDERS: ATTEND Nurse Practitioner Family
DX: G47.33 Obstructive sleep apnea (adult) (pediatric) (principal); E66.9 Obesity, unspecified; Z68.38 Body mass index [BMI] 38.0-38.9, adult
CPT/HCPCS: 99213; G0463; 99212

== ENCOUNTER 2023-10-17 07:45 | Outpatient (CLI) | payer MEDICARE ==
--- NOTE | 2023-10-17 08:31 | XRAY Report ---
PROCEDURE: Chest 2V INDICATIONS: COUGH TECHNIQUE: 2 views of the chest were acquired. COMPARISON: 07/28/2022 FINDINGS: Surgical changes and devices: Sternotomy. Lungs and pleura: No pleural effusions or pneumothorax. Lungs are clear. Mediastinum: Mediastinal contours appear normal. Heart size is normal. Bones and chest wall: No suspicious bony lesions. Overlying soft tissues appear unremarkable. IMPRESSION: No acute cardiopulmonary process. Reviewed by: Mauricio Zhou MD on 10/17/2023 8:30 AM PDT Approved by: Mauricio Zhou MD on 10/17/2023 8:30 AM PDT Station ID: [id number]
== END 2023-10-17 08:00 | disposition home or self-care (01) ==
LOC: DI.N 07:45
PROVIDERS: ATTEND Family Medicine
DX: R05.9 Cough, unspecified (principal)

== ENCOUNTER 2023-10-17 08:00 | Outpatient (CLI) | payer MEDICARE ==
[2023-10-17 11:54] LABS: BASOPHILS # (AUTO) 0.1 10^3/uL (0.0-0.1); BASOPHILS % (AUTO) 0.7 %; EOSINOPHILS # (AUTO) 0.2 10^3/uL (0.0-0.7); EOSINOPHILS % (AUTO) 1.7 %; HCT - HEMATOCRIT 45.4 % (42.0-52.0); HGB - HEMOGLOBIN 14.2 g/dL (14.0-18.0); LYMPHOCYTES # (AUTO) 1.7 10^3/uL (1.5-3.5); LYMPHOCYTES % (AUTO) 18.8 %; MEAN CORPUSCULAR HEMOGLOBIN 27.2 pg (27.0-31.0); MEAN CORPUSCULAR HGB CONC 31.3 g/dL (32.0-36.0); MEAN CORPUSCULAR VOLUME 86.8 fL (80.0-94.0); MEAN PLATELET VOLUME 11.5 fL (7.4-11.4); MONOCYTES # (AUTO) 0.7 10^3/uL (0.0-1.0); MONOCYTES % (AUTO) 7.8 %; NEUTROPHILS # (AUTO) 6.2 10^3/uL (1.5-6.6); PLT - PLATELET COUNT 195 10^3/uL (130-450); RED BLOOD COUNT 5.23 10^6/uL (4.70-6.10); RED CELL DISTRIBUTION WIDTH 15.5 % (12.0-15.0); WHITE BLOOD COUNT 8.8 x10^3/uL (4.8-10.8)
[2023-10-17 12:26] LABS: CALCIUM 9.6 mg/dL (8.5-10.3); CREATININE 0.7 mg/dL (0.6-1.3); POTASSIUM 4.1 mmol/L (3.5-4.5)
== END 2023-10-17 08:15 | disposition home or self-care (01) ==
LOC: LAB.N 08:00
PROVIDERS: ATTEND Family Medicine
DX: I25.10 Atherosclerotic heart disease of native coronary artery without angina pectoris (principal); R06.09 Other forms of dyspnea; R05.9 Cough, unspecified
CPT/HCPCS: 36415; 80048; 83880; 85025

== ENCOUNTER 2023-10-30 07:55 | Outpatient (CLI) | payer MEDICARE ==
[2023-10-30 12:26] LABS: BASOPHILS % (AUTO) 0.7 %; EOSINOPHILS # (AUTO) 0.1 10^3/uL (0.0-0.7); EOSINOPHILS % (AUTO) 1.7 %; HCT - HEMATOCRIT 44.1 % (42.0-52.0); HGB - HEMOGLOBIN 13.6 g/dL (14.0-18.0); LYMPHOCYTES # (AUTO) 1.4 10^3/uL (1.5-3.5); LYMPHOCYTES % (AUTO) 22.7 %; MEAN CORPUSCULAR HGB CONC 30.8 g/dL (32.0-36.0); MEAN CORPUSCULAR VOLUME 87.7 fL (80.0-94.0); MEAN PLATELET VOLUME 12.2 fL (7.4-11.4); MONOCYTES # (AUTO) 0.6 10^3/uL (0.0-1.0); MONOCYTES % (AUTO) 9.5 %; NEUTROPHILS # (AUTO) 3.9 10^3/uL (1.5-6.6); NEUTROPHILS % (AUTO) 65.2 %; PLT - PLATELET COUNT 163 10^3/uL (130-450); RED BLOOD COUNT 5.03 10^6/uL (4.70-6.10); RED CELL DISTRIBUTION WIDTH 16.1 % (12.0-15.0)
[2023-10-30 12:55] LABS: ALBUMIN 3.9 g/dL (3.2-5.5); ALBUMIN/GLOBULIN RATIO 1.4 (1.0-2.2); ALKALINE PHOSPHATASE 72 IU/L (42-121); ALT ALANINE AMINOTRANSFERASE 20 IU/L (10-60); AST ASPARTATE AMINOTRANSFERASE 19 IU/L (10-42); BILIRUBIN,TOTAL 1.7 mg/dL (0.2-1.0); BUN - BLOOD UREA NITROGEN 15 mg/dL (6-20); CALCIUM 9.6 mg/dL (8.5-10.3); CARBON DIOXIDE - CO2 30 mmol/L (21-32); CHLORIDE 107 mmol/L (101-111); CHOL/HDL RATIO 2.5 (<5.0); CHOLESTEROL 101 mg/dL; CREATININE 0.7 mg/dL (0.6-1.3); GFR - MDRD 112 (>89); GLUCOSE 93 mg/dL (74-104); HDL CHOLESTEROL 41 mg/dL; LDL CHOLESTEROL,CALCULATED 47 mg/dL; LDL/HDL RATIO 1.1 (<3.6); MAGNESIUM 1.9 mg/dL (1.7-2.3); POTASSIUM 4.2 mmol/L (3.5-4.5); SODIUM 140 mmol/L (135-145); TOTAL PROTEIN 6.7 g/dL (6.4-8.9); TRIGLYCERIDES 67 mg/dL (48-352); VLDL CHOLESTEROL 13 mg/dL
[2023-10-30 12:58] LABS: THYROID STIMULATING HORMONE 2.68 uIU/mL (0.34-5.60)
== END 2023-10-30 07:56 | disposition home or self-care (01) ==
LOC: LAB.N 07:55
PROVIDERS: ATTEND Family Medicine
DX: I25.10 Atherosclerotic heart disease of native coronary artery without angina pectoris (principal); R06.02 Shortness of breath; Z15.01 Genetic susceptibility to malignant neoplasm of breast; M54.16 Radiculopathy, lumbar region; I49.3 Ventricular premature depolarization
CPT/HCPCS: 36415; 80053; 80061; 83721; 83735; 84443; 85025

== ENCOUNTER 2024-01-03 10:43 | Outpatient (CLI) | payer MEDICARE ==
--- NOTE | 2024-01-03 11:08 | Sleep Patient Instructions ---
Sleep Center Visit Summary - Patient Visit Information Reason for Visit: First compliance with new device follow-up - Patient Instructions Additional Instructions: You were here for follow up of CPAP therapy. You will be continued on CPAP therapy with pressure at 17 cmH2O. You should follow up with sleep care in 12 months. You may contact us sooner for any questions or concerns. - Clinic Information Contact: [facility] [address] [place] [address] [email or web address] T: [phone]
[2024-01-03 11:10] VITALS: BP 141/80; O2SAT 100
--- NOTE | 2024-01-03 11:10 | SLEEP CARE CONSULTATION ---
Information from patient questionnaire entered by Sho Cordero. I have reviewed and concur with the information entered by Sho Cordero. This document represents the service I personally performed and the decisions made by , Bettina Ray ARNP. History of Present Illness Service Date and Time: 01/03/2024 1043 Previous diagnosis: Moderate, Obstructive Sleep Apnea-Hypopnea Syndrome AHI: 25 (01/29/2007) Reason for follow up: first compliance after device update Equipment type: CPAP (RESMED Airsense 11 S/U 10/04/23) Equipment obtained from: [email or web address] (getting supplies) Mask style: Nasal Backup mask available: Yes Last cushion change: this morning Prior sleep studies: Yes Year and Where: FEB 1999 HPI additional information: EDEL TRIANA was diagnosed to have moderate, AHI 25, obstructive sleep apnea- hypopnea syndrome and returned today for CPAP therapy first compliance after updating device follow-up. Sleep Study - Results Prior sleep studies: Yes Year and Where: FEB 1999 CPAP Compliance Data - Data Reviewed with Patient Average duration of nightly device use: 6 HRS 1 MIN Compliance rate %: 91 (11/15/23-12/07/23; 100% in last 30 days) Current pressure setting (cmH2O): 17 Average residual AHI: 2.5 Central apnea: 0.1 Obstructive apnea: 1.1 Hypopnea: 1.1 Average large leak: 1.5 L/min Subjective Patient concerns: denies: aerophagia, mask discomfort, air blowing in eyes, mask leak noise, condensation in mask/hose, nasal congestion, dry mouth, nose, throat, epistaxis Observed to snore while using device: No Current pressure setting perceived as: comfortable On therapy, patient: reports: sleeping better, awakening more refreshed, being more awake and alert during the day, more rested overall. denies: drowsiness while driving Initial [place] Sleepiness Scale score: 7 (06/27/22) Current [place] Sleepiness Scale score: 7 (01/03/24) Allergies and Home Medications Known drug allergies: Yes (as listed) Drug allergies reviewed: Yes Home medication list reviewed: Yes (as listed in EMR) Allergy and home medication list: Allergies amoxicillin Allergy (Verified 01/03/24 10:43) Hives Review of Systems Review of systems same as previous: No (HEART BYPASS 11/2022) Physical Exam Vital signs obtained and entered by: SHO Julian MA Blood Pressure: 141/80 (LEFT ARM) Cuff size: long Heart Rate: 62 O2 Saturation: 100 Height: 6 ft Weight: 295 lb 9.6 oz Weight change since last visit: 9 lb gain Body Mass Index: 40.1 BMI Classification: Morbidly Obese Impression and Plan 1. Obstructive Sleep Apnea-Hypopnea Syndrome, moderate, with good treatment compliance and good apnea control. On CPAP therapy, the patient has better sleep quality and is more rested overall. He has significant improvement of his sleep apnea and is comfortable with current CPAP setting. He has no complaints or concerns today. Patient's apnea severity and rationale for treatment to reduce apnea, improve sleep quality and reduce cardiovascular and cerebrovascular events was reviewed. I also reviewed the benefit of consistent device use of CPAP for hypertension, cardiac disease (heart bypass last November 2022). 2. Obesity, unspecified. Currently patients BMI is 40.1. Obesity increases the risk of apnea, CPAP pressure requirements and overall health risks especially cardiovascular and diabetes. Thus patient is advised to lose weight. * Continue CPAP pressure at 17 cmH2O * Notify me if snoring with mask or feeling that the pressure is too much or too little * Attempt to lose weight * Call this office if any problems using CPAP * Return for follow up in 12 months, or sooner if concerns arise Counseling Topics: Spare mask, Weight loss health impact Follow up with Sleep Care in: 1 year Visit Type: In Office Time Spent with Patient (minutes): 14 Provider Statement: I spent 100% of the Face to Face Visit with the patient with greater than 50% spent counseling the patient and coordination of care.
== END 2024-01-03 10:44 | disposition home or self-care (01) ==
LOC: SC 10:43
PROVIDERS: ATTEND Nurse Practitioner Family
DX: G47.33 Obstructive sleep apnea (adult) (pediatric) (principal); E66.01 Morbid (severe) obesity due to excess calories; Z68.41 Body mass index [BMI] 40.0-44.9, adult
CPT/HCPCS: 99212; G0463